=== PATIENT | female | born 1950 | race Caucasian/White ===

== ENCOUNTER 2017-04-07 06:36 | Emergency (ER) | payer OTHER ==
[~2017-04-07] VITALS: Ht 165.1 cm; Wt 72.7 kg
[2017-04-07] MEDS ORDERED: ONDANSETRON 4 MG INJ IV STA (06:37)
[2017-04-07] MEDS ORDERED: SOD CHLORIDE 0.9% 1,000 ML IV STA (06:37)
[2017-04-07] MEDS ORDERED: PANTOPRAZOLE 40 MG INJ IV STA (06:37)
[2017-04-07 06:45] VITALS: Ht 165.1 cm; Wt 72.7 kg
[2017-04-07] MEDS ORDERED: morphine 4 MG/ML VIAL IV STA (07:20)
[2017-04-07 07:30] LABS: ADD SCAN DIFF NO
[2017-04-07 07:31] LABS: BASOPHIL # 0.1 10^3/ul (0.0-0.1); BASOPHILS % 0.4 % (0.0-2.0); EOSINOPHILS # 0.1 10^3/ul (0.0-0.5); EOSINOPHILS % 0.7 % (0.0-7.0); HEMATOCRIT 36.5 % (37.0-47.0); HEMOGLOBIN 12.3 g/dl (12.0-16.0); LYMPHOCYTES # 2.6 10^3/ul (0.8-2.9); LYMPHOCYTES % 19.3 % (15.0-51.0); MEAN CORPUSCULAR HEMOGLOBIN 31.5 pg (29.0-33.0); MEAN CORPUSCULAR HGB CONC 33.7 g/dl (32.0-37.0); MEAN CORPUSCULAR VOLUME 93.4 fl (82.0-101.0); MEAN PLATELET VOLUME 10.8 fl (7.4-10.4); MONOCYTE # 0.8 10^3/ul (0.3-0.9); MONOCYTES % 6.2 % (0.0-11.0); NEUTROPHIL # 9.7 10^3/ul (1.6-7.5); NEUTROPHILS % 72.9 % (39.0-77.0); PLATELET COUNT 242 10^3/UL (140-415); RED BLOOD COUNT 3.91 10^6/ul (4.20-5.40); RED CELL DISTRIBUTION WIDTH 13.2 % (11.5-14.5); WHITE BLOOD COUNT 13.3 10^3/ul (4.8-10.8)
[2017-04-07 07:54] LABS: INR 0.93; PROTIME 12.5 Sec (12.2-14.2)
[2017-04-07 07:55] LABS: PARTIAL THROMBOPLASTIN TIME 28.5 Sec (25.0-35.0)
[2017-04-07 07:56] LABS: ALANINE AMINOTRANSFERASE 28 IU/L (13-69); ALBUMIN/GLOBULIN RATIO 1.28; ALKALINE PHOSPHATASE 109 IU/L (42-121); ANION GAP 11 (8-16); ASPARTATE AMINO TRANSFERASE 21 IU/L (15-46); BILIRUBIN,INDIRECT 0.4 mg/dl (0-1.1); BILIRUBIN,TOTAL 0.4 mg/dl (0.2-1.3); BLOOD UREA NITROGEN 15 mg/dl (7-20); CALCIUM 10.2 mg/dl (8.4-10.2); CARBON DIOXIDE 31 mmol/L (21-31); CHLORIDE 99 mmol/L (97-110); GLUCOSE 89 mg/dl (70-220); POTASSIUM 3.5 mmol/L (3.5-5.1); SODIUM 137 mmol/L (135-144); TOTAL PROTEIN 8.9 g/dl (6.1-8.1)
[2017-04-07 08:13] LABS: TROPONIN-I < 0.012 ng/ml (0.00-0.12)
--- NOTE | 2017-04-07 08:19 | RADRPT ---
PROCEDURE: Abdominal Ultrasound (right upper quadrant). CLINICAL INDICATION: Abdominal pain TECHNIQUE: Multiple real-time longitudinal and transverse images of the right upper quadrant of th e abdomen were acquired utilizing a curved array transducer. Images were reviewed on a high-resoluti on PACS workstation. COMPARISON: None FINDINGS: The liver is normal in size and echogenicity. No focal masses are identified. There is no evidenc e of intra or extrahepatic ductal dilatation. The common bile duct measures 5.9 mm in diameter. No gallstones or gallbladder wall thickening is seen. The visualized portions of the pancreas are unremarkable with obscuration of the tail of the pancrea s. No free fluid is identified. There is no evidence of right hydronephrosis or renal calcification. The right kidney measures 11.9 cm in length. The visualized portions of the aorta and inferior vena cava are within normal limits. IMPRESSION: 1. Unremarkable right upper quadrant ultrasound. RPTAT: [facility] .Isaiah Waller MD, MD Date Time Electronically viewed and signed by .Isaiah Waller MD, on 04/07/2017 08:19 .B/
[2017-04-07] MEDS ORDERED: ONDA4TAB14 PO (09:19)
[2017-04-07] MEDS ORDERED: HYDR-902 PO (09:19)
--- NOTE | 2017-04-07 09:20 | ERD ---
ER Documentation Chief Complaint Date/Time DATE: 04/07/17 TIME: 09:19 Chief Complaint ap x3 days, ongoing issue x1yr. HPI Patient is a 66-year-old female with hypertension and diabetes who presents with abdominal pain. She was brought in by ambulance. She has had midepigastric abdominal pain which radiates to her back. The pain started last night. She has no fevers. She has had no treatment as of yet. She had one episode of vomiting blood after a number of episodes of vomiting just food. Upon review of old medical records this is the patient's first visit to the emergency department. The patient's primary doctor is Dr. Sr. ROS All systems reviewed and are negative except as per history of present illness. Medications Home Meds Active Scripts Ondansetron (Ondansetron Odt) 4 Mg Tab.rapdis, 4 MG PO Q6H Y for NAUSEA AND/OR VOMITING, #30 TAB Prov:DEE PAVON MD 04/07/17 Hydrocodone/Acetaminophen (Kendrick 10-325 Tablet) 1 Each Tablet, 1 TAB PO Q6H Y for PAIN, #7 TAB Prov:DEE PAVON MD 04/07/17 Allergies Allergies: Coded Allergies: No Known Allergy (Unverified , 04/07/17) PMhx/Soc Medical and Surgical Hx: pt denies Surgical Hx Hx Cardiac Disorders: Yes (htn) Hx Miscellaneous Medical Probl: Yes (dm) Hx Alcohol Use: No Hx Substance Use: No Hx Tobacco Use: No Smoking Status: Never smoker FmHx Family History: diabetes Physical Exam Vitals Vital Signs Date Time Temp Pulse Resp B/P Pulse Ox O2 Delivery O2 Flow Rate FiO2 04/07/17 09:57 97.9 78 16 138/82 100 Room Air 04/07/17 08:50 78 16 119/58 97 Nasal Cannula 2.0 04/07/17 07:37 Nasal Cannula 2 04/07/17 06:45 98.3 84 18 158/70 97 Physical Exam Const: Moderate distress secondary to pain Head: Atraumatic Eyes: Normal Conjunctiva ENT: Normal External Ears, Nose and Mouth. Neck: Full range of motion..~ No meningismus. Resp: Clear to auscultation bilaterally Cardio: Regular rate and rhythm, no murmurs Abd: Epigastric tenderness to palpation without rebound or guarding Skin: No petechiae or rashes Back: No midline or flank tenderness Ext: No cyanosis, or edema Neur: Awake and alert Psych: Normal Mood and Affect Result Diagram: 04/07/1771904/07/1720 Results 24 hrs Laboratory Tests Test 04/07/17 07:20 White Blood Count 13.310^3/ul Red Blood Count 3.9110^6/ul Hemoglobin 12.3g/dl Hematocrit 36.5% Mean Corpuscular Volume 93.4fl Mean Corpuscular Hemoglobin 31.5pg Mean Corpuscular Hemoglobin Concent 33.7g/dl Red Cell Distribution Width 13.2% Platelet Count 09960^3/UL Mean Platelet Volume 10.8fl Neutrophils % 72.9% Lymphocytes % 19.3% Monocytes % 6.2% Eosinophils % 0.7% Basophils % 0.4% Nucleated Red Blood Cells % 0.0/100WBC Neutrophils # 9.710^3/ul Lymphocytes # 2.610^3/ul Monocytes # 0.810^3/ul Eosinophils # 0.110^3/ul Basophils # 0.110^3/ul Nucleated Red Blood Cells # 0.010^3/ul Prothrombin Time 12.5Sec Prothrombin Time Ratio 1.0 INR International Normalized Ratio 0.93 Activated Partial Thromboplast Time 28.5Sec Sodium Level 137mmol/L Potassium Level 3.5mmol/L Chloride Level 99mmol/L Carbon Dioxide Level 31mmol/L Anion Gap 11 Blood Urea Nitrogen 15mg/dl Creatinine 0.70mg/dl Glucose Level 89mg/dl Calcium Level 10.2mg/dl Total Bilirubin 0.4mg/dl Direct Bilirubin 0.00mg/dl Indirect Bilirubin 0.4mg/dl Aspartate Amino Transf (AST/SGOT) 21IU/L Alanine Aminotransferase (ALT/SGPT) 28IU/L Alkaline Phosphatase 109IU/L Troponin I < 0.012ng/ml Total Protein 8.9g/dl Albumin 5.0g/dl Globulin 3.90g/dl Albumin/Globulin Ratio 1.28 Lipase 83U/L Current Medications Medications (Trade) Dose Ordered Sig/Thanh Route PRN Reason Start Time Stop Time Status Last Admin Dose Admin Sodium Chloride (NS) 1,000 ml @ 1,000 mls/hr Q1H STAT IV 04/07/17 06:37 04/07/17 07:36 DC 04/07/17 07:28 Pantoprazole (Protonix Iv) 40 mg ONCE STAT IV 04/07/17 06:37 04/07/17 06:39 DC 04/07/17 07:28 Ondansetron HCl (Zofran Inj) 4 mg ONCE STAT IV 04/07/17 06:37 04/07/17 06:39 DC 04/07/17 07:28 Morphine Sulfate (morphine) 4 mg ONCE STAT IV 04/07/17 07:20 04/07/17 07:21 DC 04/07/17 07:28 Procedures/MDM EKG read by me: Rate/Rhythm: Regular rate and rhythm at a rate of 89 Intervals: Normal Impression: No evidence of ischemia or arrhythmia Ultrasound negative per radiology. Patient is a 66-year-old female who presents with abdominal pain and hematemesis. The patient has no vomiting of blood here in the emergency department and is otherwise well-appearing. Patient has a normal EKG and normal ultrasound. Laboratory studies show a mild leukocytosis but no signs of anemia or electrolyte abnormality. LFTs and lipase were normal. At this point I doubt appendicitis, cholecystitis, pancreatitis, or bowel obstruction. I doubt acute coronary syndrome. The patient will be discharged home and can follow-up with her doctor within 24 hours for reevaluation. She can return sooner for any worsening symptoms. She will be given a prescription for Kendrick and Zofran. She was given copies of her laboratory studies and ultrasound report prior to discharge. Departure Diagnosis: Primary Impression: Abdominal pain Abdominal location: epigastric Qualified Code: R10.13 - Epigastric pain Condition: Fair Patient Instructions: Abdominal Pain Additional Instructions: FOLLOW UP WITH YOUR PRIMARY CARE PHYSICIAN TOMORROW.Return to this facility if you are not improving as expected. DEE PAVON MD Apr 07, 2017 09:19
[2017-04-07 09:57] VITALS: BP 138/82; PULSE 78; RESP 16; TEMP 97.9
== END 2017-04-07 09:59 | disposition home or self-care (01) ==
LOC: E/R 06:36
DX: R10.13 Epigastric pain (principal); I10 Essential (primary) hypertension; E11.9 Type 2 diabetes mellitus without complications
CPT/HCPCS: 36415; 76705; 80053; 83690; 84484; 85025; 85610; 85730; 86850; 86900; 86901; 93005; 96374; 96375; C9113; J2270; J2405; J7030; Z7502

== ENCOUNTER 2019-02-17 10:34 | Inpatient (IN) | payer OTHER ==
[~2019-02-17] VITALS: Ht 157.5 cm; Wt 80.0 kg
[~2019-02-17 10:34] MED LIST: HYDR-3980 PO; ONDA4TAB14 PO
[2019-02-17] MEDS ORDERED: IPRATROPIUM (NEB) 0.5 MG/2.5 ML AMP INH STA (10:47)
[2019-02-17] MEDS ORDERED: METHYLPREDNISOLONE 125 MG INJ IV STA (10:47)
[2019-02-17] MEDS ORDERED: SOD CHLORIDE 0.9% 500 ML IV STA (10:47)
[2019-02-17] MEDS ORDERED: ALBUTEROL 0.5% (NEB) 2.5 MG/0.5 ML AMP INH STA (10:47)
[2019-02-17] MEDS ORDERED: morphine 2 MG INJ IV STA (11:41)
[2019-02-17] MEDS ORDERED: ONDANSETRON 4 MG INJ IV STA (11:41)
[2019-02-17] MEDS ORDERED: METF850T13 PO (11:43)
[2019-02-17] MEDS ORDERED: ASPI81TA52 PO (11:44)
[2019-02-17] MEDS ORDERED: AMLO5TAB4 PO (11:44)
[2019-02-17] MEDS ORDERED: LOSA100T15 PO (11:45)
[2019-02-17] MEDS ORDERED: LANT3I SC (11:46)
[2019-02-17] MEDS ORDERED: MELO7.5T38 PO (11:46)
[2019-02-17] MEDS ORDERED: INSU100I12 SQ (11:46)
[2019-02-17] MEDS ORDERED: MONT10TA24 PO (11:47)
[2019-02-17] MEDS ORDERED: ESCI10TA PO (11:47)
[2019-02-17] MEDS ORDERED: OMEP40CA6 PO (11:47)
[2019-02-17] MEDS ORDERED: ATOR20TA38 PO (11:47)
[2019-02-17] MEDS ORDERED: ONDANSETRON 4 MG INJ ONE (11:49)
[2019-02-17] MEDS ORDERED: morphine 4 MG/ML VIAL ONE (11:49)
--- NOTE | 2019-02-17 11:49 | ERD ---
ER Documentation Chief Complaint Chief Complaint BIB [facility] FOR EVAL OF SOB. 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 The patient indicates that for the past 48 hours she has been having severe difficulty breathing. She also complains of pain on her right chest wall. Her dyspnea has significantly worsened. She denies any swelling of her lower extremities. She is utilize her albuterol inhaler at home with no improvement of her symptoms. She is never required intubation in the past She has not been admitted to the hospital in the past for an asthma exacerbation. She had no fevers or shaking or chills. She also states that she is having a productive cough with whitish sputum. She denies any chest pain or pressure. ROS All systems reviewed and are negative except as per history of present illness. Medications Home Meds Reported Medications Escitalopram Oxalate* (Lexapro*) 10 Mg Tablet, 10 MG PO DAILY, #30 TAB 02/17/19 Omeprazole* (Omeprazole*) 40 Mg Capsule.dr, 40 MG PO DAILY, #30 CAP 02/17/19 Montelukast Sodium* (Montelukast Sodium*) 10 Mg Tablet, 10 MG PO QHS, #30 TAB 02/17/19 Atorvastatin Calcium* (Atorvastatin Calcium*) 20 Mg Tablet, 20 MG PO QHS, #30 TAB 02/17/19 Meloxicam* (Meloxicam*) 7.5 Mg Tablet, 7.5 MG PO DAILY, #30 TAB 02/17/19 Insulin Lispro (Humalog Kwikpen U-100) 100 Unit/1 Ml Insuln.pen, 12 UNIT SQ AC A, EA 02/17/19 Insulin Glargine* (Lantus*) 100 Unit/Ml Soln, 50 UNIT SC QHS, #1 VIAL 02/17/19 Losartan Potassium* (Losartan Potassium*) 100 Mg Tablet, 100 MG PO DAILY, TAB 02/17/19 Aspirin (Low Dose Aspirin) 81 Mg Tablet.dr, 81 MG PO DAILY, #30 TAB 02/17/19 Metformin Hcl* (Metformin Hcl*) 850 Mg Tablet, 850 MG PO WITH BREAKFAST DINNE, #60 TAB 02/17/19 Discontinued Reported Medications Amlodipine Besylate* (Norvasc*) 5 Mg Tablet, 5 MG PO DAILY, TAB 02/17/19 Discontinued Scripts Ondansetron (Ondansetron Odt) 4 Mg Tab.rapdis, 4 MG PO Q6H PRN for NAUSEA AND/OR VOMITING, #30 TAB Prov:DEE PAVON MD 04/07/17 Hydrocodone/Acetaminophen ([place] 10-325 Tablet) 1 Each Tablet, 1 TAB PO Q6H PRN for PAIN, #7 TAB Prov:DEE PAVON MD 04/07/17 Allergies Allergies: Coded Allergies: No Known Allergy (Unverified , 02/17/19) PMhx/Soc Hx Respiratory Disorders: Yes Hx Cardiac Disorders: Yes (htn) Hx Miscellaneous Medical Probl: Yes (dm) Hx Alcohol Use: No Hx Substance Use: No Hx Tobacco Use: No Smoking Status: Never smoker Physical Exam Vitals Vital Signs Date Temp Pulse Resp B/P (MAP) Pulse Ox O2 O2 Flow FiO2 Time Delivery Rate 02/17/19 98 98 30 12:58 02/17/19 120 98 30 11:59 02/17/19 136 22 87/43 (58) 11:51 02/17/19 120 26 100 21 11:05 02/17/19 Nasal 2 11:03 Cannula 02/17/19 99.6 112 20 112/52 99 10:42 (72) Physical Exam Constitutional:Well-developed. Well-nourished. Patient in severe respiratory distress HEENT:Normocephalic. Atraumatic.Pupils were equal round reactive to light. Moist mucous membranes.No tonsillar exudates. Neck: No nuchal rigidity. No lymphadenopathy. No posterior cervical spine tenderness or step-offs. Respiratory: Patient using accessory muscles of respiration. Bilateral rhonchi. Unable to speak more than 2 words at a time before becoming short of breath Cardiovascular: Tachycardic with regular rhythm.No murmurs. No rubs were appreciated.S1, S2 normal. Distal pulses are palpable 2+ bilaterally. GI: Abdomen was soft. Nontender. Non Distended. No pulsatile abdominal masses or bruits. No rebound. No guarding. Bowel sounds were present and normal. Muscle skeletal: Full range of motion of both the upper and lower extremities bilaterally.Normal muscle tone.No assymetrical calf tenderness or swelling. Skin: No petechia, no purpura. No lesions on the palms or the soles of the feet. No maculopapular rash. NEURO: Patient was alert, awake, orientated x3.No facial droop. Gait observed and normal with no ataxia.Speech had regular rate and rhythm. No focal neurological deficits. Result Diagram: 02/17/19 1059 02/17/19 1059 Results 24 hrs Laboratory Tests Test 02/17/19 10:59 White Blood Count 18.0 10^3/ul Red Blood Count 3.70 10^6/ul Hemoglobin 11.3 g/dl Hematocrit 35.5 % Mean Corpuscular Volume 95.9 fl Mean Corpuscular Hemoglobin 30.5 pg Mean Corpuscular Hemoglobin Concent 31.8 g/dl Red Cell Distribution Width 13.0 % Platelet Count 205 10^3/UL Mean Platelet Volume 11.6 fl Immature Granulocytes % 0.400 % Neutrophils % 71.4 % Lymphocytes % 21.9 % Monocytes % 5.8 % Eosinophils % 0.2 % Basophils % 0.3 % Nucleated Red Blood Cells % 0.0 /100WBC Immature Granulocytes # 0.080 10^3/ul Neutrophils # 12.8 10^3/ul Lymphocytes # 3.9 10^3/ul Monocytes # 1.0 10^3/ul Eosinophils # 0.0 10^3/ul Basophils # 0.1 10^3/ul Nucleated Red Blood Cells # 0.0 10^3/ul Prothrombin Time 13.7 Sec Prothrombin Time Ratio 1.1 INR International Normalized Ratio 1.04 Activated Partial Thromboplast Time 28.0 Sec Sodium Level 139 mmol/L Potassium Level 4.0 mmol/L Chloride Level 103 mmol/L Carbon Dioxide Level 25 mmol/L Anion Gap 11 Blood Urea Nitrogen 20 mg/dl Creatinine 0.94 mg/dl Est Glomerular Filtrat Rate mL/min 59 mL/min Glucose Level 236 mg/dl Calcium Level 8.4 mg/dl Total Bilirubin 0.9 mg/dl Direct Bilirubin 0.00 mg/dl Indirect Bilirubin 0.9 mg/dl Aspartate Amino Transf (AST/SGOT) 147 IU/L Alanine Aminotransferase (ALT/SGPT) 32 IU/L Alkaline Phosphatase 133 IU/L Creatine Kinase 1008 IU/L Creatine Kinase Index 6.5 Creatinine Kinase MB (Mass) 65.60 ng/ml Troponin I 15.900 ng/ml B-Type Natriuretic Peptide 7380 PG/ML Total Protein 7.3 g/dl Albumin 3.8 g/dl Globulin 3.50 g/dl Albumin/Globulin Ratio 1.08 Current Medications Medications Dose Sig/Thanh Start Time Status Last (Trade) Ordered Route PRN Stop Time Admin Dose Reason Admin Sodium 500 ml @ Q1H STAT 02/17/19 DC 02/17/19 Chloride 500 mls/hr IV 10:47 11:02 02/17/19 11:46 Albuterol 10 mg ONCE STAT 02/17/19 DC 02/17/19 (Proventil INH 10:47 11:00 0.5% (Neb)) 02/17/19 10:51 Ipratropium 1 mg ONCE STAT 02/17/19 DC 02/17/19 [place] INH 10:47 11:00 (Atrovent 02/17/19 10:51 0.02% (Neb)) 125 mg ONCE STAT 02/17/19 DC 02/17/19 Methylprednis IV 10:47 11:02 olone Sodium 02/17/19 10:51 Succinate (Solu-Medrol) Lorazepam 1 mg ONCE ONCE 02/17/19 Cancel (Ativan) IV 12:00 02/17/19 12:01 Morphine 2 mg ONCE STAT 02/17/19 UNV Sulfate IV 11:41 (morphine) 02/17/19 11:42 Ondansetron 4 mg ONCE STAT 02/17/19 DC HCl (Zofran IV 11:41 Inj) 02/17/19 12:03 Ondansetron 4 mg STK-MED 02/17/19 DC HCl (Zofran ONCE .ROUTE 11:49 Inj) 02/17/19 11:50 Morphine 4 mg STK-MED 02/17/19 DC Sulfate ONCE .ROUTE 11:49 (morphine) 02/17/19 11:50 Aspirin 325 mg ONCE ONCE 02/17/19 DC 02/17/19 (Aspirin) PO 12:00 12:18 02/17/19 12:03 Fentanyl 50 mcg ONCE ONCE 02/17/19 DC 02/17/19 (Sublimaze) IV 12:00 12:17 02/17/19 12:03 Enoxaparin 80 mg ONCE ONCE 02/17/19 DC 02/17/19 Sodium SC 12:00 12:46 (Lovenox) 02/17/19 12:19 20 mg QHS PO 02/17/19 Atorvastatin 21:00 Calcium (Lipitor) 10 mg DAILY PO 02/17/19 Escitalopram 13:00 Oxalate (Lexapro) Montelukast 10 mg QHS PO 02/17/19 Sodium 21:00 (Singulair) 1,000 mg Q4 PRN PO 02/17/19 Acetaminophen pain 13:00 (Tylenol Tab) Ondansetron 4 mg Q4 PRN IV 02/17/19 HCl (Zofran nausea 13:00 Inj) Zolpidem 5 mg HS MAY 02/17/19 Tartrate REPEAT X 1 13:00 (Ambien) PRN PO INSOMNIA Ondansetron 4 mg ER BRIDGE 02/17/19 HCl (Zofran PRN IV 13:30 Inj) NAUSEA/VOMITI 02/18/19 13:29 NG 650 mg ER BRIDGE 02/17/19 Acetaminophen PRN PO 13:30 (Tylenol .MILD PAIN 02/18/19 13:29 Tab) 1-3 OR TEMP Procedures/MDM The patient presented to the emergency department with shortness of breath. My differential diagnosis included but was not limited to upper airway obstruction, CHF, pulmonary embolism, cardiac ischemia, pneumonia, pneumothorax, anemia, drug overdose, pulmonary edema, COPD or asthma. 12 Lead EKG tracing ordered and reviewed by myself showed: Sinus tachycardia 122 bpm and no arrhythmia. NV interval normal. QRS duration normal. No ST segment elevation ST segment depression isolated to lead to and lateral lead V4. The patient had a chest radiograph that showed no pneumonia. However the patient did have pulmonary vascular congestion and cardiomegaly. The patient was immediately started on continuous nebulizer treatments of albuterol and Atrovent. However this did not improve her symptoms. The patient was still having severe difficulty breathing was placed on noninvasive mechanical ventilation. The patient's BNP was elevated at 7380. The patient was hyperglycemic without ketosis. The patient's troponin was elevated at 15.90. CK-MB was 65.90. The patient again did not complain of any chest pain or pressure. However this time I did call the fork lift technician Dr. Gagnon. After Dr. Gagnon kindly stated she would be consulted she did suggest administering 1 mg/kg of Lovenox to the patient. Therefore the patient was given 80 mg of Lovenox that she weighs 80 kg. A stat echocardiogram is being performed at bedside at 1:28 PM. She will be admitted to Dr. Edwards who also came to the bedside to evaluate the patient. The patient had significant improvement of her respiratory distress after being placed on noninvasive mechanical ventilation. Critical Care: Time: 90 minutes Treatments/Evaluations: Close monitoring and treatment of unstable vital signs, cardiorespiratory, and neurologic status, while maintaining tight balance of fluid, respiratory, and cardiac interventions. Time does not include performing any of the above billable procedures. Departure Diagnosis: Primary Impression: Congestive heart failure Heart failure type: unspecified Heart failure chronicity: acute Qualified Codes: I50.9 - Heart failure, unspecified Additional Impressions: Non-STEMI (non-ST elevated myocardial infarction) Hyperglycemia without ketosis Condition: Serious KAMRAN CARNES MD February 17, 2019 11:49
[2019-02-17] MEDS ORDERED: LORAZEPAM 2 MG INJ IV ONE (12:00)
[2019-02-17] MEDS ORDERED: FENTAnyl 50 MCG/ML VIAL IV ONE (12:00)
[2019-02-17] MEDS ORDERED: ENOXAPARIN 80 MG/0.8 ML SYG SC ONE (12:00)
[2019-02-17] MEDS ORDERED: ASPIRIN 325 MG TAB PO ONE (12:00)
[2019-02-17] MEDS ORDERED: ONDANSETRON 4 MG INJ IV PRN ×2 (13:00→13:30)
[2019-02-17] MEDS ORDERED: ACETAMINOPHEN 325 MG TAB PO PRN (13:30)
[2019-02-17] MEDS: ESCITALOPRAM 10 MG TAB PO SCH (14:40)
--- NOTE | 2019-02-17 14:47 | HP ---
DATE OF ADMISSION: 02/17/2019 CHIEF COMPLAINT: Shortness of breath. HISTORY OF PRESENT ILLNESS: A 68-year-old obese female with a history of hypertension, type 2 diabet es mellitus, and chronic asthma, presented to emergency room with complaint of shortness of breath an d dyspnea on exertion for the last 2 days prior to admission. The patient denies any chest pain. She reports bilateral upper back pain. No nausea, vomiting, or diaphoresis. No previous cardiac histor y. Initially, patient was noted to be quite hypoxic and wheezing. She received inhaler therapy and the wheezing was resolved. WBC was elevated to 18,000. BNP was elevated to 7380 with an initial troponi n of 15.9. A 12-lead EKG showed ST segment depression which were only noted in lead 4. There was no ST elevation. The patient was placed on BiPAP. A chest x-ray showed pulmonary vascular congestion and borderline cardiomegaly. The patient was hypotensive with a blood pressure of 87/53 and heart ra te of 130. PAST MEDICAL HISTORY: 1. Hypertension. 2. Type 2 diabetes mellitus. 3. Chronic asthma. 4. Chronic depression. 5. Obesity. MEDICATIONS PRIOR TO ADMISSION: 1. Amlodipine 5 mg daily. 2. Lipitor 20 mg at night. 3. Losartan 100 mg daily. 4. Aspirin 81 mg daily. 5. Lexapro 10 mg daily. 6. Meloxicam 7.5 mg daily. 7. Singulair 10 mg at bedtime. 8. Omeprazole 40 mg daily. 9. Lantus insulin 50 units at bedtime. 10. Humalog insulin 12 units before each meal. 11. Metformin 850 mg b.i.d. SOCIAL HISTORY: The patient lives at home. Her daughter was at the bedside and acted as a translato r. The patient is Ukrainian speaking. She denies tobacco, alcohol use. PHYSICAL EXAMINATION: GENERAL: Well-developed, well-nourished, obese female who is in no apparent distress. She appears a nxious. VITAL SIGNS: Blood pressure 87/53, pulse 130, respiration 22, she was on BiPAP. NECK: Supple. Mild JVD. LUNGS: Clear to auscultation bilaterally. CARDIAC: Rapid rate. No murmurs or gallops. ABDOMEN: Soft, obese, nontender, nondistended, normoactive bowel sounds. EXTREMITIES: No clubbing, cyanosis, or edema. NEUROLOGICAL: Grossly nonfocal. LABORATORY DATA: Basic metabolic panel within normal limits. Liver function tests are also normal. Troponin 15.9. BNP 7380, albumin 3.8. WBC 18,000, hemoglobin 11.3, platelet count 205,000. ASSESSMENT: 1. A 68-year-old female presenting with acute non-ST elevation myocardial infarction. 2. Acute respiratory failure. 3. Congestive heart failure exacerbation. 4. Hypotension. 5. Sinus tachycardia. 6. Type 2 diabetes mellitus. 7. History of asthma, compensated. 8. Leukocytosis with no clinical evidence of infection. PLAN: 1. Admit to telemetry. 2. The patient may need to be upgraded to ICU if she remains hypotensive. 3. Stat 2D echo. 4. Full dose Lovenox. 5. Resume selective home medications. 6. Cardiology consultation was requested and case was discussed with Dr. Gagnon. Dictated By: NILAY PEDROZA/BRENNA Conf#: [id number] DID#: [id number]
[2019-02-17 17:17] VITALS: PULSE 114
[2019-02-17 17:37] VITALS: BP 97/54; PULSE 118; RESP 20; Ht 157.5 cm; Wt 80.0 kg
[2019-02-17] MEDS ORDERED: INSULIN GLARGINE [LANTus] (100 UNITS/ML) SYG SC STA (18:31)
[2019-02-17] MEDS ORDERED: GLUCOSE GEL 15 GRAM TUBE BUCCAL PRN (19:00)
[2019-02-17] MEDS ORDERED: GLUCOSE GEL 15 GRAM TUBE PO PRN ×2 (19:00)
[2019-02-17] MEDS ORDERED: DEXTROSE 50% 50 ML SYRINGE IV PRN ×2 (19:00)
[2019-02-17] MEDS ORDERED: GLUCAGON 1 MG INJ IM PRN (19:00)
[2019-02-17 19:30] VITALS: BP 104/60; PULSE 104; RESP 18
[2019-02-17] MEDS: INSULIN ASPART [NOVOLOG] 3 ML PEN SC SCH ×2 (19:40→21:35)
[2019-02-17 20:18] VITALS: BP 98/55
[2019-02-17 20:34] VITALS: PULSE 114
[2019-02-17] MEDS ORDERED: ATORVASTATIN 20 MG TAB PO SCH (21:00)
[2019-02-17] MEDS ORDERED: INSULIN ASPART [NOVOLOG] 3 ML PEN SC SCH (21:00)
[2019-02-17] MEDS ORDERED: INSULIN ASPART [NOVOLOG] 3 ML PEN SC ONE (21:00)
[2019-02-17] MEDS: MONTELUKAST 10 MG TAB PO SCH (21:09)
--- NOTE | 2019-02-17 22:21 | RADRPT ---
Echocardiogram Report Patient Name: CLIFTON ÁLVAREZPatient ID: [id number] : [id number] ([id number])Study Date: 02/17/2019 1:29:04 PM Gender: FAccession #: [id number] Tech: [facility] Location: [facility] Ref.Physician: KAMRAN CARNES Height(Cm): 170 BSA: 1.94Weight(Kg): 79.8 Quality: Technically Difficult StudyOrder Physician: KAMRAN CARNES Account #: Procedures: Echocardiographic Report: Transthoracic echocardiogram with 2D, M-Mode, and Doppler examination. Indications: Congestive Heart Failure, and STEMI. Measurements: 2D/M Mode Doppler Measurement Value Normal Range Measurement Value Normal Range LA Volume 54.5 [ 22.0 - 52.0 ] ml AV Peak [place] 1.4 [ 100.0 - 170.0 ] c m/sec LA Volume Index 28 [ 16 - 34 ] ml/m2 AV Peak PG 8.0 [ 2.0 - 9.0 ] mmHg LVIDd 2D 5.5 [ 3.8 - 5.2 ] cm LVOT Peak [place] 0.8 [ 70.0 - 110.0 ] cm /sec LVIDs 2D 4.0 [ 2.2 - 3.5 ] cm LVOT Peak PG 3.0 [ 2.0 - 6.0 ] mmHg LVPWd 2D 1.0 [ 0.6 - 0.9 ] cm MV E Peak [place] 1.2 [ 60.0 - 130.0 ] cm /sec IVSd 2D 1.1 [ 0.6 - 0.9 ] cm MV A Peak [place] 1.3 [ 100.0 - 120.0 ] c m/sec AoR Diam 2D 2.7 [ 2.3 - 3.1 ] cm MV E/A 0.9 [ 0.8 - 1.5 ] ratio EDV 2D 145.0 [ 46.0 - 106.0 ] ml MV PHT 34.0 [ 20.0 - 100.0 ] ms ec ESV 2D 68.3 [ 14.0 - 42.0 ] ml MV Decel Time 116 [ 104 - 258 ] msec EF 2D 52.9 [ 54.0 - 74.0 ] percent MV Decel [place] 10 LA Dimen 2D 3.8 [ 2.7 - 3.8 ] cm Lat E` Magdal[place] 0.1 [ 10.0 - 15.0 ] cm/ sec Lateral E/E` 16.3 [ 1.0 - 2.0 ] ratio Med E` Magdal[place] 0.0 cm/sec MV E/A 0.9 [ 0.8 - 1.5 ] ratio MVA PHT 6.5 [ 2.0 - 4.0 ] cm2 TR Peak [place] 3.0 [ 100.0 - 280.0 ] c m/sec TR Peak PG 35.0 mmHg PV Peak Magdal[place] 0.8 [ 40.0 - 80.0 ] cm/ sec PV Peak PG 2.0 mmHg RVSP 45.0 [ 10.0 - 36.0 ] mmH g RA Pressure 10.0 mmHg Findings: Left Ventricle: Mild concentric left ventricular hypertrophy. Mild enlargement of left ventricle cavity. Unable to estimate left ventricular function secondary to poor acoustic windows, however, globally the LV function appears to be decreased possibly moderately to severely. Abnormal Diastolic Function. E/E'= 27. Right Ventricle: Normal right ventricular size. Left Atrium: Upper limit of normal left atrial size. Right Atrium: The right atrium is normal in size. Atrial Septum: Not well visualized. Mitral Valve: Mild mitral annular calcification. Mild mitral valve regurgitation. Aortic Valve: No significant aortic stenosis or insufficiency. Aortic cusps appear mildly calcified. Tricuspid Valve: Normal appearance of the tricuspid valve. The estimated Peak RVSP is 45 mmHg. There is mild tricuspid regurgitation. Pulmonic Valve: Pulmonic valve not well visualized. Pericardium: Normal pericardium with no significant pericardial effusion. Aorta: Normal aortic root. IVC: Normal size and no respiratory collapse however patient too SOB to attempt sniff. Pulmonary Artery: Normal pulmonary artery size. Conclusions: Technically difficult study. Moderate to severely reduced left ventricular systolic function, EF about 35%. Cannot adequately assess wall motion. Left atrial enlargement. Mild mitral regurgitation. Mild tricuspid regurgitation and moderate pulmonary hypertension. Electronically Signed By: Margie Gagnon 2019-02-17 22:21:07 PDT
[2019-02-17 22:25] VITALS: PULSE 102
[2019-02-17] MEDS ORDERED: ALBUTEROL/IPRATROPIUM (NEB) 3 ML AMP HHN PRN (22:30)
[2019-02-18] VITALS (32 sets, daily range): BP systolic 76–128; BP diastolic 50–83; PULSE 88–117; RESP 17–31
[2019-02-18] MEDS: ALBUTEROL/IPRATROPIUM (NEB) 3 ML AMP HHN SCH ×4 (01:56→20:11)
[2019-02-18] MEDS: ACCU-CHEK XX SCH (02:00)
[2019-02-18] MEDS: METOPROLOL (XL) 25 MG TAB PO SCH (08:25)
[2019-02-18] MEDS: ESCITALOPRAM 10 MG TAB PO SCH (09:00)
--- NOTE | 2019-02-18 09:17 | PN ---
Date/Time of Note Date/Time of Note DATE: 02/18/19 TIME: 09:13 Subjective Doing well. Remains on BiPAP. No complaints of chest pain or shortness of breath. Objective Vitals Vital Signs Date Temp Pulse Resp B/P (MAP) Pulse Ox O2 O2 Flow FiO2 Time Delivery Rate 02/18/19 92 18 106/65 99 BIPAP 09:00 (79) 02/18/19 30 09:00 02/18/19 97.5 07:54 02/17/19 5.0 22:29 Intake and Output 02/17/19 02/17/19 02/18/19 1515:00 23:00 07:00 IntakeIntake Total 200 ml BalanceBalance 200 ml Neck supple Lungs with mild crackles at the bases Cardiac regular rate and rhythm Abdomen soft obese nontender nondistended normoactive bowel sounds Extremities no edema Nonfocal Results Result Diagram: 02/18/19 0529 02/18/19 0529 Medications Medications Current Medications Escitalopram Oxalate (Lexapro) 10 mg DAILY PO ; Start 02/17/19 at 13:00 Montelukast Sodium (Singulair) 10 mg QHS PO Last administered on 02/17/19at 21:09; Admin Dose 10 MG; Start 02/17/19 at 21:00 Acetaminophen (Tylenol Tab) 1,000 mg Q4 PRN PO pain; Start 02/17/19 at 13:00 Ondansetron HCl (Zofran Inj) 4 mg Q4 PRN IV nausea; Start 02/17/19 at 13:00 Zolpidem Tartrate (Ambien) 5 mg HS MAY REPEAT X 1 PRN PO INSOMNIA; Start 02/17/19 at 13:00 Insulin Glargine (Lantus) 50 units DAILY@2000 SC ; Start 02/18/19 at 20:00 Insulin Aspart (Novolog Insulin Pen) 12 unit WITH MEALS SC Last administered on 02/17/19at 19:40; Admin Dose 12 UNIT; Start 02/17/19 at 19:00 Diagnostic Test (Pha) (Accu-Chek) 1 ea 02 XX ; Start 02/18/19 at 02:00 Insulin Aspart (Novolog Insulin Pen) NOVOLOG *MODERATE* ALGORITHM WITH MEALS BEDTIME SC Last administered on 02/17/19at 21:35; Admin Dose 4 UNIT; Start 02/17/19 at 21:00 Miscellaneous Information 1 ea NOTE XX ; Start 02/17/19 at 19:00 Glucose (Glutose) 15 gm Q15M PRN PO DECREASED GLUCOSE; Start 02/17/19 at 19:00 Glucose (Glutose) 22.5 gm Q15M PRN PO DECREASED GLUCOSE; Start 02/17/19 at 19:00 Dextrose (D50w Syringe) 25 ml Q15M PRN IV DECREASED GLUCOSE; Start 02/17/19 at 19:00 Dextrose (D50w Syringe) 50 ml Q15M PRN IV DECREASED GLUCOSE; Start 02/17/19 at 19:00 Glucagon (Glucagen) 1 mg Q15M PRN IM DECREASED GLUCOSE; Start 02/17/19 at 19:00 Glucose (Glutose) 15 gm Q15M PRN BUCCAL DECREASED GLUCOSE; Start 02/17/19 at 19:00 Atorvastatin Calcium (Lipitor) 80 mg QHS PO ; Start 02/18/19 at 21:00 Aspirin (Aspirin) 81 mg DAILY PO ; Start 02/18/19 at 09:00 Metoprolol Succinate (Toprol Xl) 12.5 mg DAILY PO ; Start 02/18/19 at 09:00 Albuterol/ Ipratropium (Duoneb) 3 ml Q6H RESP THERAPY HHN Last administered on 02/18/19at 08:45; Admin Dose 3 ML; Start 02/18/19 at 02:00 Albuterol/ Ipratropium (Duoneb) 3 ml Q6H RESP THERAPY PRN HHN SHORTNESS OF BREATH; Start 02/17/19 at 22:30 VTE Prophylaxis Risk score (from Nsg)>0 risk: 3 SCD applied (from Nsg): Yes Lines/Catheters IV Catheter Type: Saline Lock Beltran in Place: No Assessment/Plan Assessment/Plan 68-year-old female with acute non-STEMI. Troponins have been rising Ischemic cardiomyopathy with EF of 35% Acute systolic congestive heart failure exacerbation Hypotension, improved Type 2 diabetes mellitus History of chronic asthma Continue ICU monitoring IV Lasix 20 mg x 1 Lisinopril 2.[address] Faria was notified of above NILAY NORTON MD February 18, 2019 09:17
[2019-02-18] MEDS: ASPIRIN 81 MG TAB PO SCH (09:26)
[2019-02-18] MEDS ORDERED: FUROSEMIDE 20 MG INJ IV ONE (09:30)
--- NOTE | 2019-02-18 09:38 | CONS ---
Assessment/Plan Cardiology NYHA: IV Heart Failure Type: Acute Heart Failure Type: Both Assessment/Plan Hospital Course (Demo Recall) 68 yo with NSTEMI and acute heart failure Impression: NSTEMI Acute diastolic and systolic heart failure Diabetes uncontrolled Recommendations: She needs diuresis and bipap for now Once adequately diuresed will plan on coronary angiography likely for Tuesday Lovenox 1 mg/kg sq q 12, asa, high intensity statin Beta chanelle with metoprolol succinate and will uptitrate as able, lisinopril Will add spironolactone when able Consultation Date/Type/Reason Admit Date/Time February 17, 2019 at 13:03 Date of Consultation: February 18, 2019 Type of Consult Cardiology Reason for Consultation ME Requesting Provider: NILAY NORTNO MD Date/Time of Note DATE: 02/18/19 TIME: 09:31 Hx of Present Illness 68 yo with uncontrolled diabetes presents with two days of dyspnea, months of productive cough, and weeks of lower extremity dyspnea. She has had no chest pain, though with deep breaths has some discomfort in the sides of her chest. No prior heart issues. Last saw pcp 1 month ago. Does some exercise at the [employer], is active normally in her daily living. This am, was transferred to ICU due to work of breathing and concern over rising troponin levels. Patient seen in her room with family present who interpreted. Constitutional: no complaints Eyes: no complaints ENT: congestion Respiratory: pain, shortness of breath Cardiovascular: no complaints Gastrointestinal: no complaints Genitourinary: no complaints Musculoskeletal: no complaints Skin: no complaints Neurologic: no complaints Endocrine: no complaints Lymphatic: no complaints Psychological: no complaints Immunologic: no complaints Past Medical History Home Meds Reported Medications Escitalopram Oxalate* (Lexapro*) 10 Mg Tablet, 10 MG PO DAILY, #30 TAB 02/17/19 Omeprazole* (Omeprazole*) 40 Mg Capsule.dr, 40 MG PO DAILY, #30 CAP 02/17/19 Montelukast Sodium* (Montelukast Sodium*) 10 Mg Tablet, 10 MG PO QHS, #30 TAB 02/17/19 Atorvastatin Calcium* (Atorvastatin Calcium*) 20 Mg Tablet, 20 MG PO QHS, #30 T AB 02/17/19 Meloxicam* (Meloxicam*) 7.5 Mg Tablet, 7.5 MG PO DAILY, #30 TAB 02/17/19 Insulin Lispro (Humalog Kwikpen U-100) 100 Unit/1 Ml Insuln.pen, 12 UNIT SQ AC A, EA 02/17/19 Insulin Glargine* (Lantus*) 100 Unit/Ml Soln, 50 UNIT SC QHS, #1 VIAL 02/17/19 Losartan Potassium* (Losartan Potassium*) 100 Mg Tablet, 100 MG PO DAILY, TAB 02/17/19 Aspirin (Low Dose Aspirin) 81 Mg Tablet.dr, 81 MG PO DAILY, #30 TAB 02/17/19 Metformin Hcl* (Metformin Hcl*) 850 Mg Tablet, 850 MG PO WITH BREAKFAST DINNE, #60 TAB 02/17/19 Discontinued Reported Medications Amlodipine Besylate* (Norvasc*) 5 Mg Tablet, 5 MG PO DAILY, TAB 02/17/19 Discontinued Scripts Ondansetron (Ondansetron Odt) 4 Mg Tab.rapdis, 4 MG PO Q6H PRN for NAUSEA AND/OR VOMITING, #30 TAB Prov:DEE PAVON MD 04/07/17 Hydrocodone/Acetaminophen ([place] 10-325 Tablet) 1 Each Tablet, 1 TAB PO Q6H PRN for PAIN, #7 TAB Prov:DEE PAVON MD 04/07/17 Medications Current Medications Escitalopram Oxalate (Lexapro) 10 mg DAILY PO ; Start 02/17/19 at 13:00 Montelukast Sodium (Singulair) 10 mg QHS PO Last administered on 02/17/19at 21:09; Admin Dose 10 MG; Start 02/17/19 at 21:00 Acetaminophen (Tylenol Tab) 1,000 mg Q4 PRN PO pain; Start 02/17/19 at 13:00 Ondansetron HCl (Zofran Inj) 4 mg Q4 PRN IV nausea; Start 02/17/19 at 13:00 Zolpidem Tartrate (Ambien) 5 mg HS MAY REPEAT X 1 PRN PO INSOMNIA; Start 01/25 02/11 at 13:00 Insulin Glargine (Lantus) 50 units DAILY@2000 SC ; Start 02/18/19 at 20:00 Insulin Aspart (Novolog Insulin Pen) 12 unit WITH MEALS SC Last administered on 02/17/19at 19:40; Admin Dose 12 UNIT; Start 02/17/19 at 19:00 Diagnostic Test (Pha) (Accu-Chek) 1 ea 02 XX ; Start 02/18/19 at 02:00 Insulin Aspart (Novolog Insulin Pen) NOVOLOG *MODERATE* ALGORITHM WITH MEALS BEDTIME SC Last administered on 02/17/19at 21:35; Admin Dose 4 UNIT; Start 02/17/19 at 21:00 Miscellaneous Information 1 ea NOTE XX ; Start 02/17/19 at 19:00 Glucose (Glutose) 15 gm Q15M PRN PO DECREASED GLUCOSE; Start 02/17/19 at 19:00 Glucose (Glutose) 22.5 gm Q15M PRN PO DECREASED GLUCOSE; Start 02/17/19 at 19:00 Dextrose (D50w Syringe) 25 ml Q15M PRN IV DECREASED GLUCOSE; Start 02/17/19 at 19:00 Dextrose (D50w Syringe) 50 ml Q15M PRN IV DECREASED GLUCOSE; Start 02/17/19 at 19:00 Glucagon (Glucagen) 1 mg Q15M PRN IM DECREASED GLUCOSE; Start 02/17/19 at 19:00 Glucose (Glutose) 15 gm Q15M PRN BUCCAL DECREASED GLUCOSE; Start 02/17/19 at 19:00 Atorvastatin Calcium (Lipitor) 80 mg QHS PO ; Start 02/18/19 at 21:00 Aspirin (Aspirin) 81 mg DAILY PO Last administered on 02/18/19at 09:26; Admin Dose 81 MG; Start 02/18/19 at 09:00 Metoprolol Succinate (Toprol Xl) 12.5 mg DAILY PO ; Start 02/18/19 at 09:00 Albuterol/ Ipratropium (Duoneb) 3 ml Q6H RESP THERAPY HHN Last administered on 02/18/19at 08:45; Admin Dose 3 ML; Start 02/18/19 at 02:00 Albuterol/ Ipratropium (Duoneb) 3 ml Q6H RESP THERAPY PRN HHN SHORTNESS OF BREATH; Start 02/17/19 at 22:30 Furosemide (Lasix) 20 mg ONCE ONCE IV Last administered on 02/18/19at 09:26; Admin Dose 20 MG; Start 02/18/19 at 09:30; Stop 02/18/19 at 09:31 Lisinopril (Zestril) 2.5 mg DAILY PO ; Start 5/26/19 at 09:30 Allergies: Coded Allergies: No Known Allergy (Unverified , 02/17/19) Past Surgical History Past Surgical Hx: no surgical history Family History Significant Family History: heart disease (brother had ME at 45) Social History Smoking Status: Never smoker Exam/Review of Systems Vital Signs Vitals Vital Signs Date Temp Pulse Resp B/P (MAP) Pulse Ox O2 O2 Flow FiO2 Time Delivery Rate 02/18/19 92 18 106/65 99 BIPAP 09:00 (79) 02/18/19 30 09:00 02/18/19 97.5 07:54 02/17/19 5.0 22:29 Intake and Output 02/17/19 02/17/19 02/18/19 1515:00 23:00 07:00 IntakeIntake Total 200 ml BalanceBalance 200 ml Exam Constitutional: alert, well developed, other (tachypneic) Psych: anxiety Head: normocephalic, atraumatic Eyes: EOMI, nl lids ENMT: nl external ears & nose Neck: jvd (JVP elevated); No bruits Respiratory: crackles/rales; No intercostal retraction Cardiovascular: regular rate and rhythm, other (tachycardic); No nl pulses (absent pt and dp pulses) Gastrointestinal: soft, distended Musculoskeletal: nl extremities to inspection Extremities: No normal pulses, No edema Neurological: nl speech Skin: nl turgor Labs Result Diagram: 02/18/19 0529 02/18/19 0529 Results 24hrs Laboratory Tests Test 02/17/19 10:59 02/17/19 18:02 02/17/19 19:00 02/17/19 20:15 White Blood Count 18.0 #H Red Blood Count 3.70 L Hemoglobin 11.3 L Hematocrit 35.5 L Mean Corpuscular 95.9 Volume Mean Corpuscular 30.5 Hemoglobin Mean Corpuscular 31.8 L Hemoglobin Concent Red Cell 13.0 Distribution Width Platelet Count 205 Mean Platelet Volume 11.6 H Immature 0.400 Granulocytes % Neutrophils % 71.4 Lymphocytes % 21.9 Monocytes % 5.8 Eosinophils % 0.2 Basophils % 0.3 Nucleated Red Blood 0.0 Cells % Immature 0.080 H Granulocytes # Neutrophils # 12.8 H Lymphocytes # 3.9 H Monocytes # 1.0 H Eosinophils # 0.0 Basophils # 0.1 Nucleated Red Blood 0.0 Cells # Prothrombin Time 13.7 Prothrombin Time 1.1 Ratio INR International 1.04 Normalized Ratio Activated 28.0 Partial Thromboplast Time Sodium Level 139 Potassium Level 4.0 Chloride Level 103 Carbon Dioxide Level 25 Anion Gap 11 Blood Urea Nitrogen 20 Creatinine 0.94 Est Glomerular 59 L Filtrat Rate mL/min Glucose Level 236 H Calcium Level 8.4 Total Bilirubin 0.9 Direct Bilirubin 0.00 Indirect Bilirubin 0.9 Aspartate Amino 147 H Transf (AST/SGOT) Alanine 32 Aminotransferase (AL T/SGPT) Alkaline Phosphatase 133 H Creatine Kinase 1008 H Creatine Kinase 6.5 Index Creatinine Kinase MB 65.60 H (Mass) Troponin I 15.900 *H 15.500 *H B-Type Natriuretic 7380 H Peptide Total Protein 7.3 Albumin 3.8 Globulin 3.50 H Albumin/Globulin 1.08 Ratio Bedside Glucose 457 *H 512 *H Test 02/17/19 22:05 02/17/19 23:55 02/18/19 00:20 02/18/19 02:03 Bedside Glucose 478 *H 394 H 306 H Troponin I 26.500 *H Test 02/18/19 05:29 02/18/19 06:19 White Blood Count 18.5 H Red Blood Count 3.46 L Hemoglobin 10.5 L Hematocrit 32.6 L Mean Corpuscular 94.2 Volume Mean Corpuscular 30.3 Hemoglobin Mean Corpuscular 32.2 Hemoglobin Concent Red Cell 13.1 Distribution Width Platelet Count 229 Mean Platelet Volume 12.2 H Immature 0.500 H Granulocytes % Neutrophils % 83.4 H Lymphocytes % 8.6 L Monocytes % 7.4 Eosinophils % 0.0 Basophils % 0.1 Nucleated Red Blood 0.0 Cells % Immature 0.090 H Granulocytes # Neutrophils # 15.5 H Lymphocytes # 1.6 Monocytes # 1.4 H Eosinophils # 0.0 Basophils # 0.0 Nucleated Red Blood 0.0 Cells # Sodium Level 139 Potassium Level 4.8 Chloride Level 106 Carbon Dioxide Level 27 Anion Gap 6 Blood Urea Nitrogen 33 #H Creatinine 1.02 H Est Glomerular 54 L Filtrat Rate mL/min Glucose Level 255 H Hemoglobin A1c 9.6 H Calcium Level 9.0 Total Bilirubin 0.6 Direct Bilirubin 0.00 Indirect Bilirubin 0.6 Aspartate Amino 168 H Transf (AST/SGOT) Alanine 36 Aminotransferase (AL T/SGPT) Alkaline Phosphatase 116 Troponin I 32.500 *H Total Protein 7.2 Albumin 3.7 Globulin 3.50 H Albumin/Globulin 1.05 Ratio Triglycerides Level 117 Cholesterol Level 182 LDL Cholesterol, 128 Calculated HDL Cholesterol 31 L Cholesterol/HDL 5.8 Ratio Bedside Glucose 221 H Imaging Imaging EKG with severely reduced LVEF, EKG yesterday shows sinus tach with ST depressions in inferior and anterolateral leads, poor r wave progression Medications Medications Current Medications Escitalopram Oxalate (Lexapro) 10 mg DAILY PO ; Start 02/17/19 at 13:00 Montelukast Sodium (Singulair) 10 mg QHS PO Last administered on 02/17/19at 21:09; Admin Dose 10 MG; Start 02/17/19 at 21:00 Acetaminophen (Tylenol Tab) 1,000 mg Q4 PRN PO pain; Start 02/17/19 at 13:00 Ondansetron HCl (Zofran Inj) 4 mg Q4 PRN IV nausea; Start 02/17/19 at 13:00 Zolpidem Tartrate (Ambien) 5 mg HS MAY REPEAT X 1 PRN PO INSOMNIA; Start 02/17/19 at 13:00 Insulin Glargine (Lantus) 50 units DAILY@2000 SC ; Start 02/18/19 at 20:00 Insulin Aspart (Novolog Insulin Pen) 12 unit WITH MEALS SC Last administered on 02/17/19at 19:40; Admin Dose 12 UNIT; Start 02/17/19 at 19:00 Diagnostic Test (Pha) (Accu-Chek) 1 ea 02 XX ; Start 02/18/19 at 02:00 Insulin Aspart (Novolog Insulin Pen) NOVOLOG *MODERATE* ALGORITHM WITH MEALS BEDTIME SC Last administered on 02/17/19at 21:35; Admin Dose 4 UNIT; Start 02/17/19 at 21:00 Miscellaneous Information 1 ea NOTE XX ; Start 02/17/19 at 19:00 Glucose (Glutose) 15 gm Q15M PRN PO DECREASED GLUCOSE; Start 02/17/19 at 19:00 Glucose (Glutose) 22.5 gm Q15M PRN PO DECREASED GLUCOSE; Start 02/17/19 at 19:00 Dextrose (D50w Syringe) 25 ml Q15M PRN IV DECREASED GLUCOSE; Start 02/17/19 at 19:00 Dextrose (D50w Syringe) 50 ml Q15M PRN IV DECREASED GLUCOSE; Start 02/17/19 at 19:00 Glucagon (Glucagen) 1 mg Q15M PRN IM DECREASED GLUCOSE; Start 02/17/19 at 19:00 Glucose (Glutose) 15 gm Q15M PRN BUCCAL DECREASED GLUCOSE; Start 02/17/19 at 19:00 Atorvastatin Calcium (Lipitor) 80 mg QHS PO ; Start 02/18/19 at 21:00 Aspirin (Aspirin) 81 mg DAILY PO Last administered on 02/18/19at 09:26; Admin Dose 81 MG; Start 02/18/19 at 09:00 Metoprolol Succinate (Toprol Xl) 12.5 mg DAILY PO ; Start 02/18/19 at 09:00 Albuterol/ Ipratropium (Duoneb) 3 ml Q6H RESP THERAPY HHN Last administered on 02/18/19at 08:45; Admin Dose 3 ML; Start 02/18/19 at 02:00 Albuterol/ Ipratropium (Duoneb) 3 ml Q6H RESP THERAPY PRN HHN SHORTNESS OF BREATH; Start 02/17/19 at 22:30 Furosemide (Lasix) 20 mg ONCE ONCE IV Last administered on 02/18/19at 09:26; Admin Dose 20 MG; Start 02/18/19 at 09:30; Stop 02/18/19 at 09:31 Lisinopril (Zestril) 2.5 mg DAILY PO ; Start 02/18/19 at 09:30 RUDY LONDON February 18, 2019 09:38
[2019-02-18] MEDS: ENOXAPARIN 100 MG/ML SYG SC SCH ×2 (11:15→20:56)
[2019-02-18] MEDS: INSULIN ASPART [NOVOLOG] 3 ML PEN SC SCH ×7 (11:30→20:29)
[2019-02-18] MEDS: LISINOPRIL 5 MG TAB PO SCH (13:07)
[2019-02-18] MEDS: FUROSEMIDE 20 MG INJ IV SCH ×2 (13:07→20:47)
[2019-02-18] MEDS: ACETAMINOPHEN 500 MG TAB PO PRN ×2 (19:28→20:29)
[2019-02-18] MEDS ORDERED: INSULIN GLARGINE [LANTus] (100 UNITS/ML) SYG SC SCH (20:00)
[2019-02-18] MEDS: MONTELUKAST 10 MG TAB PO SCH (20:48)
[2019-02-18] MEDS: ATORVASTATIN 80 MG TAB PO SCH (20:48)
[2019-02-18] MEDS: morphine 2 MG INJ IV PRN ×2 (21:01→23:02)
[2019-02-18] MEDS ORDERED: morphine 2 MG INJ IV STA (23:37)
[2019-02-18] MEDS ORDERED: ACETAMINOPHEN 325 MG TAB PO STA (23:37)
[2019-02-19] VITALS (28 sets, daily range): BP systolic 92–109; BP diastolic 51–72; PULSE 93–128; RESP 13–30
[2019-02-19] MEDS ORDERED: NITROGLYCERIN (SL) 0.4 MG TAB SL PRN
[2019-02-19] MEDS: morphine 2 MG INJ IV PRN (01:09)
[2019-02-19] MEDS: ALBUTEROL/IPRATROPIUM (NEB) 3 ML AMP HHN SCH ×4 (01:14→19:35)
[2019-02-19] MEDS: ACCU-CHEK XX SCH (02:06)
[2019-02-19] MEDS: morphine 4 MG/ML VIAL IV PRN ×5 (02:07→19:18)
[2019-02-19] MEDS: ZOLPIDEM 5 MG TAB PO PRN ×2 (03:16→20:47)
[2019-02-19] MEDS ORDERED: DIAZEPAM 5 MG TAB PO ONE (07:30)
[2019-02-19] MEDS ORDERED: DIPHENHYDRAMINE 50 MG CAP PO ONE (07:30)
--- NOTE | 2019-02-19 07:33 | CONS ---
Assessment/Plan Cardiology NYHA: IV Heart Failure Type: Acute Heart Failure Type: Both Assessment/Plan Hospital Course (Demo Recall) 68 yo with NSTEMI and acute heart failure Impression: NSTEMI Acute diastolic and systolic heart failure, improved with diuresis Shoulder/chest pain, noncardiac Diabetes uncontrolled Recommendations: Can stop furosemide, she has put out over 2 L of urine CXR today Metoprolol and lisinopril, metoprolol was held yesterday by nursing Coronary angiography tomorrow afternoon, risks and benefits discussed with pt and son, she agrees to proceed Lovenox 1 mg/kg sq q 12 for 2 more doses, asa, high intensity statin Will add spironolactone when able Consultation Date/Type/Reason Admit Date/Time February 17, 2019 at 13:03 Initial Consult Date 02/18/19 Type of Consult Cardiology Requesting Provider: NILAY NORTON MD Date/Time of Note DATE: 02/19/19 TIME: 07:27 24 HR Interval Summary Free Text/Dictation Overnight had chest pain that was classified as "10/10", was sharp in nature, eventually relieved with nitroglycerin, without ekg changes, and troponin trending downward. This am she points to her left shoulder as a source of pain. She did not present with chest pain. She is still with the bipap and says she is breathing better. Son at bedside. Exam/Review of Systems Vital Signs Vitals Vital Signs Date Temp Pulse Resp B/P (MAP) Pulse Ox O2 O2 Flow FiO2 Time Delivery Rate 02/19/19 107 98 30 05:22 02/19/19 16 99/66 (77) 05:00 02/19/19 98.9 04:00 02/19/19 BIPAP 00:00 02/18/19 3.0 23:00 Intake and Output 02/18/19 02/18/19 02/19/19 1515:00 23:00 07:00 OutputOutput Total 1000 ml 975 ml 355 ml BalanceBalance -1000 ml -975 ml -355 ml Exam Constitutional: alert, oriented Psych: no complaints, nl mood/affect Head: normocephalic, atraumatic Eyes: EOMI, nl lids ENMT: nl external ears & nose Neck: No jvd, No bruits Respiratory: clear to auscultation (anteriorly), normal air movement Cardiovascular: regular rate and rhythm; No murmurs/extra sounds Gastrointestinal: soft, nl liver, spleen, non-tender Musculoskeletal: nl extremities to inspection Extremities: No edema Neurological: nl speech Skin: nl turgor Labs Result Diagram: 02/19/1951802/19/19518 Results 24hrs Laboratory Tests Test 02/18/19 11:10 02/18/19 13:27 02/18/19 17:40 02/18/19 20:14 Bedside Glucose 150 107 144 80 Test 02/19/19 05:19 White Blood Count 17.6 H Red Blood Count 3.35 L Hemoglobin 10.2 L Hematocrit 32.3 L Mean Corpuscular 96.4 Volume Mean Corpuscular 30.4 Hemoglobin Mean Corpuscular 31.6 L Hemoglobin Concent Red Cell 13.3 Distribution Width Platelet Count 243 Mean Platelet Volume 12.2 H Immature 0.500 H Granulocytes % Neutrophils % 81.6 H Lymphocytes % 9.7 L Monocytes % 8.0 Eosinophils % 0.0 Basophils % 0.2 Nucleated Red Blood 0.0 Cells % Immature 0.080 H Granulocytes # Neutrophils # 14.3 H Lymphocytes # 1.7 Monocytes # 1.4 H Eosinophils # 0.0 Basophils # 0.0 Nucleated Red Blood 0.0 Cells # Sodium Level 141 Potassium Level 4.1 Chloride Level 105 Carbon Dioxide Level 28 Anion Gap 8 Blood Urea Nitrogen 35 H Creatinine 1.08 H Est Glomerular 50 L Filtrat Rate mL/min Glucose Level 138 # Calcium Level 8.5 Troponin I 29.600 *H Medications Medications Current Medications Escitalopram Oxalate (Lexapro) 10 mg DAILY PO ; Start 02/17/19 at 13:00 Montelukast Sodium (Singulair) 10 mg QHS PO Last administered on 02/18/19at 20:48; Admin Dose 10 MG; Start 02/17/19 at 21:00 Acetaminophen (Tylenol Tab) 1,000 mg Q4 PRN PO pain Last administered on 02/18/19at 19:28; Admin Dose 1,000 MG; Start 02/17/19 at 13:00 Ondansetron HCl (Zofran Inj) 4 mg Q4 PRN IV nausea; Start 02/17/19 at 13:00 Zolpidem Tartrate (Ambien) 5 mg HS MAY REPEAT X 1 PRN PO INSOMNIA Last administered on 02/19/19at 03:16; Admin Dose 5 MG; Start 02/17/19 at 13:00 Insulin Glargine (Lantus) 50 units DAILY@2000 SC ; Start 02/18/19 at 20:00 Insulin Aspart (Novolog Insulin Pen) 12 unit WITH MEALS SC Last administered on 02/18/19at 17:59; Admin Dose 12 UNIT; Start 02/17/19 at 19:00 Diagnostic Test (Pha) (Accu-Chek) 1 ea 02 XX Last administered on 02/19/19at 02:06; Admin Dose 1 EA; Start 02/18/19 at 02:00 Insulin Aspart (Novolog Insulin Pen) NOVOLOG *MODERATE* ALGORITHM WITH MEALS BEDTIME SC Last administered on 02/18/19 18:00; Admin Dose 2 UNIT; Start 02/17/19 at 21:00 Miscellaneous Information 1 ea NOTE XX ; Start 02/17/19 at 19:00 Glucose (Glutose) 15 gm Q15M PRN PO DECREASED GLUCOSE; Start 02/17/19 at 19:00 Glucose (Glutose) 22.5 gm Q15M PRN PO DECREASED GLUCOSE; Start 02/17/19 at 19:00 Dextrose (D50w Syringe) 25 ml Q15M PRN IV DECREASED GLUCOSE; Start 02/17/19 at 19:00 Dextrose (D50w Syringe) 50 ml Q15M PRN IV DECREASED GLUCOSE; Start 02/17/19 at 19:00 Glucagon (Glucagen) 1 mg Q15M PRN IM DECREASED GLUCOSE; Start 02/17/19 at 19:00 Glucose (Glutose) 15 gm Q15M PRN BUCCAL DECREASED GLUCOSE; Start 02/17/19 at 19:00 Atorvastatin Calcium (Lipitor) 80 mg QHS PO Last administered on 02/18/19at 20:48; Admin Dose 80 MG; Start 02/18/19 at 21:00 Aspirin (Aspirin) 81 mg DAILY PO Last administered on 02/18/19at 09:26; Admin Dose 81 MG; Start 02/18/19 at 09:00 Metoprolol Succinate (Toprol Xl) 12.5 mg DAILY PO ; Start 02/18/19 at 09:00 Albuterol/ Ipratropium (Duoneb) 3 ml Q6H RESP THERAPY HHN Last administered on 02/19/19at 01:14; Admin Dose 3 ML; Start 02/18/19 at 02:00 Albuterol/ Ipratropium (Duoneb) 3 ml Q6H RESP THERAPY PRN HHN SHORTNESS OF BREATH; Start 02/17/19 at 22:30 Lisinopril (Zestril) 2.5 mg DAILY PO Last administered on 02/18/19at 13:07; Admin Dose 2.5 MG; Start 02/18/19 at 09:30 Enoxaparin Sodium (Lovenox) 80 mg Q12 SC Last administered on 02/18/19at 20:56; Admin Dose 80 MG; Start 02/18/19 at 10:00 Furosemide (Lasix) 20 mg TID IV Last administered on 02/18/19at 20:47; Admin Dose 20 MG; Start 02/18/19 at 13:00 Nitroglycerin (Nitroglycerin (Sl Tab) 0.4 Mg) 1 tab Q5M PRN SL ANGINA; Start 02/19/19 at 00:00 Morphine Sulfate (morphine) 3 mg Q1H PRN IV CHEST PAIN Last administered on at 06:53; Admin Dose 3 MG; Start 02/19/19 at 01:30 Diazepam (Valium) 10 mg OC ONCE PO ; Start 02/19/19 at 07:30; Stop 02/19/19 at 07:31; Status UNV Diphenhydramine HCl (Benadryl) 50 mg OC ONCE PO ; Start 02/19/19 at 07:30; Stop 02/19/19 at 07:31; Status UNV RUDY LONDON February 19, 2019 07:33
[2019-02-19] MEDS: INSULIN ASPART [NOVOLOG] 3 ML PEN SC SCH ×7 (08:13→20:57)
[2019-02-19] MEDS: ENOXAPARIN 100 MG/ML SYG SC SCH ×2 (08:57→20:56)
[2019-02-19] MEDS: ASPIRIN 81 MG TAB PO SCH (08:58)
[2019-02-19] MEDS: METOPROLOL (XL) 25 MG TAB PO SCH (08:58)
[2019-02-19] MEDS: ESCITALOPRAM 10 MG TAB PO SCH (08:59)
[2019-02-19] MEDS: LISINOPRIL 5 MG TAB PO SCH (09:00)
--- NOTE | 2019-02-19 09:25 | PN ---
Date/Time of Note Date/Time of Note DATE: 02/19/19 TIME: 09:20 Subjective Patient complains of left shoulder pain. Shortness of breath improved Objective Vitals Vital Signs Date Temp Pulse Resp B/P (MAP) Pulse Ox O2 O2 Flow FiO2 Time Delivery Rate 02/19/19 103 08:00 02/19/19 3.0 07:56 02/19/19 98 30 05:22 02/19/19 16 99/66 (77) 05:00 02/19/19 98.9 04:00 02/19/19 BIPAP 00:00 Intake and Output 02/18/19 02/18/19 02/19/19 1515:00 23:00 07:00 OutputOutput Total 1000 ml 975 ml 355 ml BalanceBalance -1000 ml -975 ml -355 ml Neck is supple Left shoulder tender to palpation with limited range of motion. Lungs with mild rhonchi. No crackles Cardiac regular rate and rhythm no murmurs or gallops Abdomen soft nontender nondistended normoactive bowel sounds Extremities no edema Neurological nonfocal Results Result Diagram: 02/19/1951802/19/19518 Medications Medications Current Medications Escitalopram Oxalate (Lexapro) 10 mg DAILY PO ; Start 02/17/19 at 13:00 Montelukast Sodium (Singulair) 10 mg QHS PO Last administered on 02/18/19at 20:48; Admin Dose 10 MG; Start 02/17/19 at 21:00 Acetaminophen (Tylenol Tab) 1,000 mg Q4 PRN PO pain Last administered on 02/18/19at 19:28; Admin Dose 1,000 MG; Start 02/17/19 at 13:00 Ondansetron HCl (Zofran Inj) 4 mg Q4 PRN IV nausea; Start 02/17/19 at 13:00 Zolpidem Tartrate (Ambien) 5 mg HS MAY REPEAT X 1 PRN PO INSOMNIA Last administered on 02/19/19at 03:16; Admin Dose 5 MG; Start 02/17/19 at 13:00 Insulin Glargine (Lantus) 50 units DAILY@2000 SC ; Start 02/18/19 at 20:00 Diagnostic Test (Pha) (Accu-Chek) 1 ea 02 XX Last administered on 02/19/19at 02:06; Admin Dose 1 EA; Start 02/18/19 at 02:00 Insulin Aspart (Novolog Insulin Pen) NOVOLOG *MODERATE* ALGORITHM WITH MEALS BEDTIME SC Last administered on 02/19/19at 08:14; Admin Dose 2 UNIT; Start 02/17/19 at 21:00 Miscellaneous Information 1 ea NOTE XX ; Start 02/17/19 at 19:00 Glucose (Glutose) 15 gm Q15M PRN PO DECREASED GLUCOSE; Start 02/17/19 at 19:00 Glucose (Glutose) 22.5 gm Q15M PRN PO DECREASED GLUCOSE; Start 02/17/19 at 19:00 Dextrose (D50w Syringe) 25 ml Q15M PRN IV DECREASED GLUCOSE; Start 02/17/19 at 19:00 Dextrose (D50w Syringe) 50 ml Q15M PRN IV DECREASED GLUCOSE; Start 02/17/19 at 19:00 Glucagon (Glucagen) 1 mg Q15M PRN IM DECREASED GLUCOSE; Start 02/17/19 at 19:00 Glucose (Glutose) 15 gm Q15M PRN BUCCAL DECREASED GLUCOSE; Start 02/17/19 at 19:00 Atorvastatin Calcium (Lipitor) 80 mg QHS PO Last administered on 02/18/19at 20:48; Admin Dose 80 MG; Start 02/18/19 at 21:00 Aspirin (Aspirin) 81 mg DAILY PO Last administered on 02/19/19at 08:58; Admin Dose 81 MG; Start 02/18/19 at 09:00 Metoprolol Succinate (Toprol Xl) 12.5 mg DAILY PO Last administered on 02/19/19at 08:58; Admin Dose 12.5 MG; Start 02/18/19 at 09:00 Albuterol/ Ipratropium (Duoneb) 3 ml Q6H RESP THERAPY HHN Last administered on 02/19/19at 07:57; Admin Dose 3 ML; Start 02/18/19 at 02:00 Albuterol/ Ipratropium (Duoneb) 3 ml Q6H RESP THERAPY PRN HHN SHORTNESS OF BREATH; Start 02/17/19 at 22:30 Lisinopril (Zestril) 2.5 mg DAILY PO Last administered on 02/18/19at 13:07; Admin Dose 2.5 MG; Start 02/18/19 at 09:30 Enoxaparin Sodium (Lovenox) 80 mg Q12 SC Last administered on 02/19/19at 08:57; Admin Dose 80 MG; Start 02/18/19 at 10:00; Stop 02/20/19 at 01:00 Nitroglycerin (Nitroglycerin (Sl Tab) 0.4 Mg) 1 tab Q5M PRN SL ANGINA; Start 02/19/19 at 00:00 Morphine Sulfate (morphine) 3 mg Q1H PRN IV CHEST PAIN Last administered on 02/19/19at 06:53; Admin Dose 3 MG; Start 02/19/19 at 01:30 Insulin Aspart (Novolog Insulin Pen) 15 unit WITH MEALS SC ; Start 02/19/19 at 11:30 VTE Prophylaxis Risk score (from Nsg)>0 risk: 7 SCD applied (from Nsg): Yes Lines/Catheters IV Catheter Type: Saline Lock Light in Place: Yes Cont'd light catheter reason: other (indicate) (ICU stay post [place]) Assessment/Plan Assessment/Plan 68-year-old female with acute non-STEMI Acute systolic and diastolic congestive heart failure exacerbation Ischemic cardiomyopathy Poorly controlled type 2 diabetes mellitus Left shoulder pain Chronic asthma, compensated Hold diuresis Continue low-dose metoprolol and GEOVANI inhibitor as blood pressure allows Increase Lantus insulin to 55 units daily Increase short acting insulin to 15 units before each meal Left shoulder x-ray Cardiology follow-up is appreciated Patient is a scheduled to undergo coronary angiography tomorrow afternoon NILAY NORTON MD February 19, 2019 09:25
[2019-02-19] MEDS ORDERED: INSULIN GLARGINE [LANTus] (100 UNITS/ML) SYG SC SCH (20:00)
[2019-02-19] MEDS: DICLOFENAC SODIUM 1% GEL 100 GM TUBE TP PRN (20:47)
[2019-02-19] MEDS: ATORVASTATIN 80 MG TAB PO SCH (20:47)
[2019-02-19] MEDS: MONTELUKAST 10 MG TAB PO SCH (20:47)
[2019-02-20] VITALS (39 sets, daily range): BP systolic 84–120; BP diastolic 48–75; PULSE 97–121; RESP 15–29
[2019-02-20] MEDS: ACCU-CHEK XX SCH (01:07)
[2019-02-20] MEDS: ALBUTEROL/IPRATROPIUM (NEB) 3 ML AMP HHN SCH ×4 (01:21→19:49)
[2019-02-20] MEDS: morphine 4 MG/ML VIAL IV PRN (05:12)
[2019-02-20] MEDS: INSULIN ASPART [NOVOLOG] 3 ML PEN SC SCH ×7 (07:35→21:00)
[2019-02-20] MEDS: LISINOPRIL 5 MG TAB PO SCH (09:00)
--- NOTE | 2019-02-20 09:04 | PN ---
Date/Time of Note Date/Time of Note DATE: 02/20/19 TIME: 09:01 Subjective Doing well. No complaint of chest pain. Left shoulder pain is well controlled. Objective Vitals Vital Signs Date Temp Pulse Resp B/P (MAP) Pulse Ox O2 O2 Flow FiO2 Time Delivery Rate 02/20/19 98.5 107 15 104/66 98 BIPAP 08:00 (79) 02/20/19 30 07:54 02/19/19 5.0 18:00 Intake and Output 02/19/19 02/19/19 02/20/19 1515:00 23:00 07:00 IntakeIntake Total 400 ml 0 ml OutputOutput Total 320 ml 290 ml 210 ml BalanceBalance 80 ml -290 ml -210 ml Neck supple Lungs clear to auscultation bilaterally Cardiac rapid rate no murmurs or gallops Abdomen soft nontender nondistended normoactive bowel sounds Extremities no edema Neurological nonfocal Results Result Diagram: 02/20/19 0513 02/20/19 0513 Medications Medications Current Medications Escitalopram Oxalate (Lexapro) 10 mg DAILY PO ; Start 02/17/19 at 13:00 Montelukast Sodium (Singulair) 10 mg QHS PO Last administered on 02/19/19at 20:47; Admin Dose 10 MG; Start 02/17/19 at 21:00 Acetaminophen (Tylenol Tab) 1,000 mg Q4 PRN PO pain Last administered on 02/18/19 19:28; Admin Dose 1,000 MG; Start 02/17/19 at 13:00 Ondansetron HCl (Zofran Inj) 4 mg Q4 PRN IV nausea; Start 02/17/19 at 13:00 Zolpidem Tartrate (Ambien) 5 mg HS MAY REPEAT X 1 PRN PO INSOMNIA Last administered on 02/19/19 20:47; Admin Dose 5 MG; Start 02/17/19 at 13:00 Diagnostic Test (Pha) (Accu-Chek) 1 ea 02 XX Last administered on 02/19/19 02:06; Admin Dose 1 EA; Start 02/18/19 at 02:00 Insulin Aspart (Novolog Insulin Pen) NOVOLOG *MODERATE* ALGORITHM WITH MEALS B EDTIME SC Last administered on 02/20/19at 08:14; Admin Dose 2 UNIT; Start 02/17/19 at 21:00 Miscellaneous Information 1 ea NOTE XX ; Start 02/17/19 at 19:00 Glucose (Glutose) 15 gm Q15M PRN PO DECREASED GLUCOSE; Start 02/17/19 at 19:00 Glucose (Glutose) 22.5 gm Q15M PRN PO DECREASED GLUCOSE; Start 02/17/19 at 19:00 Dextrose (D50w Syringe) 25 ml Q15M PRN IV DECREASED GLUCOSE; Start 02/17/19 at 19:00 Dextrose (D50w Syringe) 50 ml Q15M PRN IV DECREASED GLUCOSE; Start 02/17/19 at 19:00 Glucagon (Glucagen) 1 mg Q15M PRN IM DECREASED GLUCOSE; Start 02/17/19 at 19:00 Glucose (Glutose) 15 gm Q15M PRN BUCCAL DECREASED GLUCOSE; Start 02/17/19 at 19:00 Atorvastatin Calcium (Lipitor) 80 mg QHS PO Last administered on 02/19/19at 20:47; Admin Dose 80 MG; Start 02/18/19 at 21:00 Aspirin (Aspirin) 81 mg DAILY PO Last administered on 02/19/19at 08:58; Admin Dose 81 MG; Start 02/18/19 at 09:00 Metoprolol Succinate (Toprol Xl) 12.5 mg DAILY PO Last administered on 02/19/19at 08:58; Admin Dose 12.5 MG; Start 02/18/19 at 09:00 Albuterol/ Ipratropium (Duoneb) 3 ml Q6H RESP THERAPY HHN Last administered on 02/20/19at 07:53; Admin Dose 3 ML; Start 02/18/19 at 02:00 Albuterol/ Ipratropium (Duoneb) 3 ml Q6H RESP THERAPY PRN HHN SHORTNESS OF BREATH; Start 02/17/19 at 22:30 Lisinopril (Zestril) 2.5 mg DAILY PO Last administered on 02/18/19at 13:07; Admin Dose 2.5 MG; Start 02/18/19 at 09:30 Nitroglycerin (Nitroglycerin (Sl Tab) 0.4 Mg) 1 tab Q5M PRN SL ANGINA; Start 02/19/19 at 00:00 Morphine Sulfate (morphine) 3 mg Q1H PRN IV CHEST PAIN Last administered on 02/20/19at 05:12; Admin Dose 3 MG; Start 02/19/19 at 01:30 Insulin Aspart (Novolog Insulin Pen) 15 unit WITH MEALS SC Last administered on 02/19/19at 16:12; Admin Dose 15 UNIT; Start 02/19/19 at 11:30 Insulin Glargine (Lantus) 55 units DAILY@2000 SC ; Start 02/19/19 at 20:00; Status Hold Diclofenac Sodium (Voltaren 1% Gel) 2 gm QID PRN TP PAIN Last administered on 02/19/19at 20:47; Admin Dose 2 GM; Start 02/19/19 at 18:30 VTE Prophylaxis Risk score (from Nsg)>0 risk: 5 SCD applied (from Ns): Yes Lines/Catheters IV Catheter Type: Saline Lock Light in Place: Yes (ICU status) Cont'd light catheter reason: other (indicate) (ICU status) Assessment/Plan Assessment/Plan 68-year-old female with acute non-STEMI Acute systolic and diastolic congestive heart failure exacerbation, improved with diuresis Type 2 diabetes mellitus Anemia of chronic disease History of hypertension Chronic asthma, compensated Continue current therapy On-call to [facility] this afternoon Plan of care was discussed with the patient and her son at the bedside NILAY NORTON MD February 20, 2019 09:04
[2019-02-20] MEDS: ESCITALOPRAM 10 MG TAB PO SCH (09:29)
[2019-02-20] MEDS: METOPROLOL (XL) 25 MG TAB PO SCH (09:29)
[2019-02-20] MEDS: ASPIRIN 81 MG TAB PO SCH (09:29)
--- NOTE | 2019-02-20 09:44 | CONS ---
Assessment/Plan Assessment/Plan Assessment/Plan (Daily) Assessment and recommendations; 1. Patient admitted with acute CA with CHF with interval radiological and clinical improvement. 2. History of hypertension. 3. History of depression. 4. Anemia and thrombocytopenia which are both mild. Continue current supportive care. Patient scheduled for coronary angiography today. Continue BiPAP for now. Obtain follow-up chest x-ray 24 hours. Consultation Date/Type/Reason Admit Date/Time February 17, 2019 at 13:03 Date of Consultation: February 20, 2019 Type of Consult Pulmonary/critical care Patient is a pleasant 68-year-old lady who has been admitted to the hospital because of acute onset of shortness of breath due to acute CA with positive troponins. Patient has been on BiPAP with significant improvement in symptoms. She denies any chest pain, coughing, wheezing, sputum production or hemoptysis. By the time I saw her in ICU, patient was laying comfortably in bed on BiPAP. And did not appear to be in any distress whatsoever. Past medical history; 1. History of diabetes 2. Possibly CHF 3. Hypertension Medications; reviewed Allergies; none Social history; patient has been a lifelong non-smoker. Family history; brother had CAD. 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 Review of systems; limited review of system could be obtained as the patient is on BiPAP. She reports decreased shortness of breath. Denies any chest pain, angina, wheezing, any sputum production. Any nausea vomiting. Any fever or chills. Any bleeding tendencies. General exam; elderly lady, awake and alert. Currently in no distress. On BiPAP. Date/Time of Note DATE: 02/20/19 TIME: 09:41 Past Medical History Home Meds Reported Medications Escitalopram Oxalate* (Lexapro*) 10 Mg Tablet, 10 MG PO DAILY, #30 TAB 02/17/19 Omeprazole* (Omeprazole*) 40 Mg Capsule.dr, 40 MG PO DAILY, #30 CAP 02/17/19 Montelukast Sodium* (Montelukast Sodium*) 10 Mg Tablet, 10 MG PO QHS, #30 TAB 02/17/19 Atorvastatin Calcium* (Atorvastatin Calcium*) 20 Mg Tablet, 20 MG PO QHS, #30 TAB 02/17/19 Meloxicam* (Meloxicam*) 7.5 Mg Tablet, 7.5 MG PO DAILY, #30 TAB 02/17/19 Insulin Lispro (Humalog Kwikpen U-100) 100 Unit/1 Ml Insuln.pen, 12 UNIT SQ AC A, EA 02/17/19 Insulin Glargine* (Lantus*) 100 Unit/Ml Soln, 50 UNIT SC QHS, #1 VIAL 02/17/19 Losartan Potassium* (Losartan Potassium*) 100 Mg Tablet, 100 MG PO DAILY, TAB 02/17/19 Aspirin (Low Dose Aspirin) 81 Mg Tablet.dr, 81 MG PO DAILY, #30 TAB 02/17/19 Metformin Hcl* (Metformin Hcl*) 850 Mg Tablet, 850 MG PO WITH BREAKFAST DINNE, #60 TAB 02/17/19 Discontinued Reported Medications Amlodipine Besylate* (Norvasc*) 5 Mg Tablet, 5 MG PO DAILY, TAB 02/17/19 Discontinued Scripts Ondansetron (Ondansetron Odt) 4 Mg Tab.rapdis, 4 MG PO Q6H PRN for NAUSEA AND/OR VOMITING, #30 TAB Prov:DEE PAVON MD 04/07/17 Hydrocodone/Acetaminophen ([place] 10-325 Tablet) 1 Each Tablet, 1 TAB PO Q6H PRN for PAIN, #7 TAB Prov:DEE PAVON MD 04/07/17 Medications Current Medications Escitalopram Oxalate (Lexapro) 10 mg DAILY PO Last administered on 02/20/19at 09:29; Admin Dose 10 MG; Start 02/17/19 at 13:00 Montelukast Sodium (Singulair) 10 mg QHS PO Last administered on 02/19/19at 20: 47; Admin Dose 10 MG; Start 02/17/19 at 21:00 Acetaminophen (Tylenol Tab) 1,000 mg Q4 PRN PO pain Last administered on 02/18/19at 19:28; Admin Dose 1,000 MG; Start 02/17/19 at 13:00 Ondansetron HCl (Zofran Inj) 4 mg Q4 PRN IV nausea; Start 02/17/19 at 13:00 Zolpidem Tartrate (Ambien) 5 mg HS MAY REPEAT X 1 PRN PO INSOMNIA Last administered on 02/19/19at 20:47; Admin Dose 5 MG; Start 02/17/19 at 13:00 Diagnostic Test (Pha) (Accu-Chek) 1 ea 02 XX Last administered on 02/19/19at 02:06; Admin Dose 1 EA; Start 02/18/19 at 02:00 Insulin Aspart (Novolog Insulin Pen) NOVOLOG *MODERATE* ALGORITHM WITH MEALS BEDTIME SC Last administered on 02/20/19at 08:14; Admin Dose 2 UNIT; Start 02/17/19 at 21:00 Miscellaneous Information 1 ea NOTE XX ; Start 02/17/19 at 19:00 Glucose (Glutose) 15 gm Q15M PRN PO DECREASED GLUCOSE; Start 02/17/19 at 19:00 Glucose (Glutose) 22.5 gm Q15M PRN PO DECREASED GLUCOSE; Start 02/17/19 at 19:00 Dextrose (D50w Syringe) 25 ml Q15M PRN IV DECREASED GLUCOSE; Start 02/17/19 at 19:00 Dextrose (D50w Syringe) 50 ml Q15M PRN IV DECREASED GLUCOSE; Start 02/17/19 at 19:00 Glucagon (Glucagen) 1 mg Q15M PRN IM DECREASED GLUCOSE; Start 02/17/19 at 19:00 Glucose (Glutose) 15 gm Q15M PRN BUCCAL DECREASED GLUCOSE; Start 02/17/19 at 19:00 Atorvastatin Calcium (Lipitor) 80 mg QHS PO Last administered on 02/19/19at 20:47; Admin Dose 80 MG; Start 02/18/19 at 21:00 Aspirin (Aspirin) 81 mg DAILY PO Last administered on 02/20/19at 09:29; Admin Dose 81 MG; Start 02/18/19 at 09:00 Metoprolol Succinate (Toprol Xl) 12.5 mg DAILY PO Last administered on 02/20/19at 09:29; Admin Dose 12.5 MG; Start 02/18/19 at 09:00 Albuterol/ Ipratropium (Duoneb) 3 ml Q6H RESP THERAPY HHN Last administered on 02/20/19at 07:53; Admin Dose 3 ML; Start 02/18/19 at 02:00 Albuterol/ Ipratropium (Duoneb) 3 ml Q6H RESP THERAPY PRN HHN SHORTNESS OF BREATH; Start 02/17/19 at 22:30 Lisinopril (Zestril) 2.5 mg DAILY PO Last administered on 02/18/19at 13:07; Admin Dose 2.5 MG; Start 02/18/19 at 09:30 Nitroglycerin (Nitroglycerin (Sl Tab) 0.4 Mg) 1 tab Q5M PRN SL ANGINA; Start 02/19/19 at 00:00 Morphine Sulfate (morphine) 3 mg Q1H PRN IV CHEST PAIN Last administered on 02/20/19at 05:12; Admin Dose 3 MG; Start 02/19/19 at 01:30 Insulin Aspart (Novolog Insulin Pen) 15 unit WITH MEALS SC Last administered on 02/19/19at 16:12; Admin Dose 15 UNIT; Start 02/19/19 at 11:30 Insulin Glargine (Lantus) 55 units DAILY@2000 SC ; Start 02/19/19 at 20:00; Status Hold Diclofenac Sodium (Voltaren 1% Gel) 2 gm QID PRN TP PAIN Last administered on 02/19/19at 20:47; Admin Dose 2 GM; Start 02/19/19 at 18:30 Allergies: Coded Allergies: No Known Allergy (Unverified , 02/17/19) Past Surgical History Past Surgical Hx: no surgical history Social History Smoking Status: Never smoker Exam/Review of Systems Exam Vitals Vital Signs Date Temp Pulse Resp B/P (MAP) Pulse Ox O2 O2 Flow FiO2 Time Delivery Rate 02/20/19 98.5 107 15 104/66 98 BIPAP 08:00 (79) 02/20/19 30 07:54 02/19/19 5.0 18:00 Intake and Output 02/19/19 02/19/19 02/20/19 1515:00 23:00 07:00 IntakeIntake Total 400 ml 0 ml OutputOutput Total 320 ml 290 ml 210 ml BalanceBalance 80 ml -290 ml -210 ml Exam H ENT exam; supple neck, positive JVD. No lymphadenopathy. Midline trachea. No thyromegaly. On BiPAP. Pupils are small bilaterally. Chest exam; diminished breath sounds bilaterally. S1-S2 audible, no murmurs. Tachycardic. Regular rhythm. Abdomen exam; soft, nontender. No organomegaly. Bowel sounds audible. Extremity exam; no edema or clubbing. Pulses 1+. 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 Results Result Diagram: 02/20/19 0513 02/20/19 0513 Results 24hrs Laboratory Tests Test 02/19/19 12:33 02/19/19 16:09 02/19/19 19:38 02/20/19 05:13 Bedside Glucose 150 183 159 White Blood Count 14.6 H Red Blood Count 3.15 L Hemoglobin 9.5 L Hematocrit 30.1 L Mean Corpuscular 95.6 Volume Mean Corpuscular 30.2 Hemoglobin Mean Corpuscular 31.6 L Hemoglobin Concent Red Cell 13.4 Distribution Width Platelet Count 195 Mean Platelet Volume 12.9 H Immature 0.400 Granulocytes % Neutrophils % 76.2 Lymphocytes % 15.6 Monocytes % 7.4 Eosinophils % 0.1 Basophils % 0.3 Nucleated Red Blood 0.0 Cells % Immature 0.060 H Granulocytes # Neutrophils # 11.1 H Lymphocytes # 2.3 Monocytes # 1.1 H Eosinophils # 0.0 Basophils # 0.0 Nucleated Red Blood 0.0 Cells # Prothrombin Time 15.2 H Prothrombin Time 1.2 Ratio INR International 1.19 Normalized Ratio Activated 39.3 H Partial Thromboplast Time Sodium Level 137 Potassium Level 4.0 Chloride Level 103 Carbon Dioxide Level 25 Anion Gap 9 Blood Urea Nitrogen 36 H Creatinine 1.12 H Est Glomerular 48 L Filtrat Rate mL/min Glucose Level 174 Calcium Level 8.2 L Test 02/20/19 08:11 Bedside Glucose 163 Medications Medication Current Medications Escitalopram Oxalate (Lexapro) 10 mg DAILY PO Last administered on 02/20/19 09:29; Admin Dose 10 MG; Start 02/17/19 at 13:00 Montelukast Sodium (Singulair) 10 mg QHS PO Last administered on 02/19/19at 20:47; Admin Dose 10 MG; Start 02/17/19 at 21:00 Acetaminophen (Tylenol Tab) 1,000 mg Q4 PRN PO pain Last administered on 02/18/19 19:28; Admin Dose 1,000 MG; Start 02/17/19 at 13:00 Ondansetron HCl (Zofran Inj) 4 mg Q4 PRN IV nausea; Start 02/17/19 at 13:00 Zolpidem Tartrate (Ambien) 5 mg HS MAY REPEAT X 1 PRN PO INSOMNIA Last administered on 02/19/19at 20:47; Admin Dose 5 MG; Start 02/17/19 at 13:00 Diagnostic Test (Pha) (Accu-Chek) 1 ea 02 XX Last administered on 02/19/19at 02:06; Admin Dose 1 EA; Start 02/18/19 at 02:00 Insulin Aspart (Novolog Insulin Pen) NOVOLOG *MODERATE* ALGORITHM WITH MEALS BEDTIME SC Last administered on 02/20/19 08:14; Admin Dose 2 UNIT; Start 02/17/19 at 21:00 Miscellaneous Information 1 ea NOTE XX ; Start 02/17/19 at 19:00 Glucose (Glutose) 15 gm Q15M PRN PO DECREASED GLUCOSE; Start 02/17/19 at 19:00 Glucose (Glutose) 22.5 gm Q15M PRN PO DECREASED GLUCOSE; Start 02/17/19 at 19:00 Dextrose (D50w Syringe) 25 ml Q15M PRN IV DECREASED GLUCOSE; Start 02/17/19 at 19:00 Dextrose (D50w Syringe) 50 ml Q15M PRN IV DECREASED GLUCOSE; Start 02/17/19 at 19:00 Glucagon (Glucagen) 1 mg Q15M PRN IM DECREASED GLUCOSE; Start 02/17/19 at 19:00 Glucose (Glutose) 15 gm Q15M PRN BUCCAL DECREASED GLUCOSE; Start 02/17/19 at 19:00 Atorvastatin Calcium (Lipitor) 80 mg QHS PO Last administered on 02/19/19at 20:47; Admin Dose 80 MG; Start 02/18/19 at 21:00 Aspirin (Aspirin) 81 mg DAILY PO Last administered on 02/20/19 09:29; Admin Dose 81 MG; Start 02/18/19 at 09:00 Metoprolol Succinate (Toprol Xl) 12.5 mg DAILY PO Last administered on 02/20/19 09:29; Admin Dose 12.5 MG; Start 02/18/19 at 09:00 Albuterol/ Ipratropium (Duoneb) 3 ml Q6H RESP THERAPY HHN Last administered on 02/20/19 07:53; Admin Dose 3 ML; Start 02/18/19 at 02:00 Albuterol/ Ipratropium (Duoneb) 3 ml Q6H RESP THERAPY PRN HHN SHORTNESS OF BREATH; Start 02/17/19 at 22:30 Lisinopril (Zestril) 2.5 mg DAILY PO Last administered on 02/18/19at 13:07; Admin Dose 2.5 MG; Start 02/18/19 at 09:30 Nitroglycerin (Nitroglycerin (Sl Tab) 0.4 Mg) 1 tab Q5M PRN SL ANGINA; Start 02/19/19 at 00:00 Morphine Sulfate (morphine) 3 mg Q1H PRN IV CHEST PAIN Last administered on 02/20/19at 05:12; Admin Dose 3 MG; Start 02/19/19 at 01:30 Insulin Aspart (Novolog Insulin Pen) 15 unit WITH MEALS SC Last administered on 02/19/19at 16:12; Admin Dose 15 UNIT; Start 02/19/19 at 11:30 Insulin Glargine (Lantus) 55 units DAILY@2000 SC ; Start 02/19/19 at 20:00; Status Hold Diclofenac Sodium (Voltaren 1% Gel) 2 gm QID PRN TP PAIN Last administered on 02/19/19at 20:47; Admin Dose 2 GM; Start 02/19/19 at 18:30 ONELIA MONTILLA February 20, 2019 09:44
[2019-02-20] MEDS: DICLOFENAC SODIUM 1% GEL 100 GM TUBE TP PRN (12:05)
[2019-02-20] MEDS ORDERED: HEPARIN 1000 UNITS/ML 10 ML INJ ONE (14:51)
[2019-02-20] MEDS ORDERED: LIDOCAINE 1% (MDV) 20 ML INJ ONE (14:51)
[2019-02-20] MEDS ORDERED: VERAPAMIL 5 MG INJ ONE (14:51)
[2019-02-20] MEDS ORDERED: IODIXANOL LOCM 100 ML BTL ONE (14:51)
[2019-02-20] MEDS ORDERED: NITROGLYCERIN (IC) 100 MCG/ML INJ ONE (14:51)
[2019-02-20] MEDS ORDERED: FENTAnyl 50 MCG/ML VIAL ONE (15:09)
[2019-02-20] MEDS ORDERED: MIDAZOLAM 1 MG/ML 2 ML INJ ONE (15:10)
[2019-02-20] MEDS ORDERED: SOD CHLORIDE 0.9% 1,000 ML IV SCH (15:47)
--- NOTE | 2019-02-20 16:00 | OPR ---
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 She received conscious sedation with versed and fentanyl. Access obtained in the right radial artery, 6F sheath placed. Verapamil, heparin, and nitro given through the sheath. A [place] catheter was advanced over a J wire, engaged the LM and then RCA, angiography performed w injection of contrast. The [place] catheter crossed the aortic valve, pressures measured and a pullback pressure measured. It was felt appropriate to assess the prox LAD better with iFR. More heparin given, ACT checked, and a FL 3.5 guide advanced over wire, engaged the LM. Wire equalized in the LM, and then advanced to the mid LAD, and iFR measured. Angiography performed after removal of the wire demonstrating stable vessel. Findings: LM - short, normal LAD - long prox-mid 70% lesion with iFR of 0.66. Moderate diffuse distal disease. Diagonal vessel with moderate diffuse disease LCX - Ostial 90% lesion, OM1 with 99% mid lesion and JOHNATH[place] 1 flow past the lesion RCA - Totally occluded in its proximal portion. PDA fills by left to right collaterals. LVEDP - 25 Plan: CABG. Dr. Subramanian contacted. RUDY LONDON February 20, 2019 16:00
--- NOTE | 2019-02-20 16:03 | CONS ---
Assessment/Plan Cardiology NYHA: IV Heart Failure Type: Acute Heart Failure Type: Both Assessment/Plan Hospital Course (Demo Recall) 68 yo with NSTEMI and acute heart failure. Cath shows 3 vessel coronary disease Impression: NSTEMI with severe 3 vessel coronary disease Acute diastolic and systolic heart failure, improved with diuresis Diabetes uncontrolled Recommendations: CABG recommended. I have contacted Dr. Subramanian Continue asa, high intensity statin, bb, arb, and uptitrate arb and bb as able. 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 Exam/Review of Systems Vital Signs Vitals Vital Signs Date Temp Pulse Resp B/P (MAP) Pulse Ox O2 O2 Flow FiO2 Time Delivery Rate 02/20/19 103 17 105/62 99 Nasal 3.0 14:00 (76) Cannula 02/20/19 30 13:53 02/20/19 98.6 12:00 Intake and Output 02/19/19 02/19/19 02/20/19 1515:00 23:00 07:00 IntakeIntake Total 400 ml 0 ml OutputOutput Total 320 ml 290 ml 210 ml BalanceBalance 80 ml -290 ml -210 ml Exam Constitutional: alert, well developed Cardiovascular: regular rate and rhythm, nl pulses Skin: nl turgor Labs Result Diagram: 02/20/19 0513 02/20/19 0513 Results 24hrs Laboratory Tests Test 02/19/19 16:09 02/19/19 19:38 02/20/19 05:13 02/20/19 08:11 Bedside Glucose 183 159 163 White Blood Count 14.6 H Red Blood Count 3.15 L Hemoglobin 9.5 L Hematocrit 30.1 L Mean Corpuscular 95.6 Volume Mean Corpuscular 30.2 Hemoglobin Mean Corpuscular 31.6 L Hemoglobin Concent Red Cell 13.4 Distribution Width Platelet Count 195 Mean Platelet Volume 12.9 H Immature 0.400 Granulocytes % Neutrophils % 76.2 Lymphocytes % 15.6 Monocytes % 7.4 Eosinophils % 0.1 Basophils % 0.3 Nucleated Red Blood 0.0 Cells % Immature 0.060 H Granulocytes # Neutrophils # 11.1 H Lymphocytes # 2.3 Monocytes # 1.1 H Eosinophils # 0.0 Basophils # 0.0 Nucleated Red Blood 0.0 Cells # Prothrombin Time 15.2 H Prothrombin Time 1.2 Ratio INR International 1.19 Normalized Ratio Activated 39.3 H Partial Thromboplast Time Sodium Level 137 Potassium Level 4.0 Chloride Level 103 Carbon Dioxide Level 25 Anion Gap 9 Blood Urea Nitrogen 36 H Creatinine 1.12 H Est Glomerular 48 L Filtrat Rate mL/min Glucose Level 174 Calcium Level 8.2 L Test 02/20/19 11:01 Bedside Glucose 143 Medications Medications Current Medications Escitalopram Oxalate (Lexapro) 10 mg DAILY PO Last administered on 02/20/19 09:29; Admin Dose 10 MG; Start 02/17/19 at 13:00 Montelukast Sodium (Singulair) 10 mg QHS PO Last administered on 02/19/19 20:47; Admin Dose 10 MG; Start 02/17/19 at 21:00 Acetaminophen (Tylenol Tab) 1,000 mg Q4 PRN PO pain Last administered on 02/18/19 19:28; Admin Dose 1,000 MG; Start 02/17/19 at 13:00 Ondansetron HCl (Zofran Inj) 4 mg Q4 PRN IV nausea; Start 02/17/19 at 13:00 Zolpidem Tartrate (Ambien) 5 mg HS MAY REPEAT X 1 PRN PO INSOMNIA Last administered on 02/19/19 20:47; Admin Dose 5 MG; Start 02/17/19 at 13:00 Diagnostic Test (Pha) (Accu-Chek) 1 ea 02 XX Last administered on 02/19/19at 02:06; Admin Dose 1 EA; Start 02/18/19 at 02:00 Insulin Aspart (Novolog Insulin Pen) NOVOLOG *MODERATE* ALGORITHM WITH MEALS BEDTIME SC Last administered on 02/20/19 11:04; Admin Dose 2 UNIT; Start 02/17/19 at 21:00 Miscellaneous Information 1 ea NOTE XX ; Start 02/17/19 at 19:00 Glucose (Glutose) 15 gm Q15M PRN PO DECREASED GLUCOSE; Start 02/17/19 at 19:00 Glucose (Glutose) 22.5 gm Q15M PRN PO DECREASED GLUCOSE; Start 02/17/19 at 19:00 Dextrose (D50w Syringe) 25 ml Q15M PRN IV DECREASED GLUCOSE; Start 02/17/19 at 19:00 Dextrose (D50w Syringe) 50 ml Q15M PRN IV DECREASED GLUCOSE; Start 02/17/19 at 19:00 Glucagon (Glucagen) 1 mg Q15M PRN IM DECREASED GLUCOSE; Start 02/17/19 at 19:00 Glucose (Glutose) 15 gm Q15M PRN BUCCAL DECREASED GLUCOSE; Start 02/17/19 at 19:00 Atorvastatin Calcium (Lipitor) 80 mg QHS PO Last administered on 02/19/19 20:47; Admin Dose 80 MG; Start 02/18/19 at 21:00 Aspirin (Aspirin) 81 mg DAILY PO Last administered on 02/20/19 09:29; Admin Dose 81 MG; Start 02/18/19 at 09:00 Metoprolol Succinate (Toprol Xl) 12.5 mg DAILY PO Last administered on 02/20/19 09:29; Admin Dose 12.5 MG; Start 02/18/19 at 09:00 Albuterol/ Ipratropium (Duoneb) 3 ml Q6H RESP THERAPY HHN Last administered on 02/20/19 13:53; Admin Dose 3 ML; Start 02/18/19 at 02:00 Albuterol/ Ipratropium (Duoneb) 3 ml Q6H RESP THERAPY PRN HHN SHORTNESS OF BR EATH; Start 02/17/19 at 22:30 Lisinopril (Zestril) 2.5 mg DAILY PO Last administered on 02/18/19 13:07; Admin Dose 2.5 MG; Start 02/18/19 at 09:30 Nitroglycerin (Nitroglycerin (Sl Tab) 0.4 Mg) 1 tab Q5M PRN SL ANGINA; Start 02/19/19 at 00:00 Morphine Sulfate (morphine) 3 mg Q1H PRN IV CHEST PAIN Last administered on 02/20/19 05:12; Admin Dose 3 MG; Start 02/19/19 at 01:30 Insulin Aspart (Novolog Insulin Pen) 15 unit WITH MEALS SC Last administered on 02/19/19at 16:12; Admin Dose 15 UNIT; Start 02/19/19 at 11:30 Insulin Glargine (Lantus) 55 units DAILY@2000 SC ; Start 02/19/19 at 20:00; Status Hold Diclofenac Sodium (Voltaren 1% Gel) 2 gm QID PRN TP PAIN Last administered on 02/20/19at 12:05; Admin Dose 2 GM; Start 02/19/19 at 18:30 Miscellaneous Information (* Miscellaneous Pharmacy Order) HOLD all METFORMIN ... ONCE ONCE XX ; Start 02/20/19 at 16:00; Stop 02/20/19 at 16:01; Status UNV Sodium Chloride 1,000 ml @ 75 mls/hr [id number] IV ; Start 02/20/19 at 15:47; Stop 02/20/19 at 20:46; Status UNV RUDY LONDON February 20, 2019 16:03
--- NOTE | 2019-02-20 18:26 | CONS ---
Assessment/Plan Assessment/Plan Assessment/Plan (Daily) 68 year old female with ischemic cardiomyopathy and 3V CAD. I explained to the patient and her daughter and nephew the risks, benefits, and alternatives of surgery. The risks are but not limited to bleeding, infection, stroke, VT, renal and respiratory failure and . STS risks of mortality is about 3-5%. They want to discuss further. If they agree will plan on or Tuesday. Will order carotid duplex Consultation Date/Type/Reason Admit Date/Time February 17, 2019 at 13:03 Date of Consultation: February 20, [address] SURGERY Reason for Consultation EVAL FOR CABG Requesting Provider: RUDY LONDON Date/Time of Note DATE: 02/20/19 TIME: 18:20 Hx of Present Illness 68 year old female with DM, HT, admitted with CHF symptoms. Echo showed EF of 35%. Cath today shows occluded RCA, subtotal large ramus and 70-80% proximal LAD stenosis. She also has some renal insufficiency. We are asked to evaluate for CABG Constitutional: no complaints, improved Eyes: no complaints ENT: no complaints Respiratory: cough, shortness of breath Cardiovascular: no complaints Gastrointestinal: no complaints Genitourinary: no complaints Musculoskeletal: no complaints Skin: no complaints Neurologic: no complaints Endocrine: no complaints Lymphatic: no complaints Psychological: no complaints, nl mood/affect Immunologic: no complaints Past Medical History Medical History: congestive heart failure, coronary artery disease, diabetes, high cholesterol, hypertension Home Meds Reported Medications Escitalopram Oxalate* (Lexapro*) 10 Mg Tablet, 10 MG PO DAILY, #30 TAB 02/17/19 Omeprazole* (Omeprazole*) 40 Mg Capsule.dr, 40 MG PO DAILY, #30 CAP 02/17/19 Montelukast Sodium* (Montelukast Sodium*) 10 Mg Tablet, 10 MG PO QHS, #30 TAB 02/17/19 Atorvastatin Calcium* (Atorvastatin Calcium*) 20 Mg Tablet, 20 MG PO QHS, #30 TAB 02/17/19 Meloxicam* (Meloxicam*) 7.5 Mg Tablet, 7.5 MG PO DAILY, #30 TAB 02/17/19 Insulin Lispro (Humalog Kwikpen U-100) 100 Unit/1 Ml Insuln.pen, 12 UNIT SQ AC A, EA 02/17/19 Insulin Glargine* (Lantus*) 100 Unit/Ml Soln, 50 UNIT SC QHS, #1 VIAL 02/17/19 Losartan Potassium* (Losartan Potassium*) 100 Mg Tablet, 100 MG PO DAILY, TAB 02/17/19 Aspirin (Low Dose Aspirin) 81 Mg Tablet.dr, 81 MG PO DAILY, #30 TAB 02/17/19 Metformin Hcl* (Metformin Hcl*) 850 Mg Tablet, 850 MG PO WITH BREAKFAST DINNE, #60 TAB 02/17/19 Discontinued Reported Medications Amlodipine Besylate* (Norvasc*) 5 Mg Tablet, 5 MG PO DAILY, TAB 02/17/19 Discontinued Scripts Ondansetron (Ondansetron Odt) 4 Mg Tab.rapdis, 4 MG PO Q6H PRN for NAUSEA AND/OR VOMITING, #30 TAB Prov:DEE PAVON MD 04/07/17 Hydrocodone/Acetaminophen ([place] 10-325 Tablet) 1 Each Tablet, 1 TAB PO Q6H PRN for PAIN, #7 TAB Prov:DEE PAVON MD 04/07/17 Medications Current Medications Escitalopram Oxalate (Lexapro) 10 mg DAILY PO Last administered on 02/20/19 09:29; Admin Dose 10 MG; Start 02/17/19 at 13:00 Montelukast Sodium (Singulair) 10 mg QHS PO Last administered on 02/19/19at 20:47; Admin Dose 10 MG; Start 02/17/19 at 21:00 Acetaminophen (Tylenol Tab) 1,000 mg Q4 PRN PO pain Last administered on 02/18/19 19:28; Admin Dose 1,000 MG; Start 02/17/19 at 13:00 Ondansetron HCl (Zofran Inj) 4 mg Q4 PRN IV nausea; Start 02/17/19 at 13:00 Zolpidem Tartrate (Ambien) 5 mg HS MAY REPEAT X 1 PRN PO INSOMNIA Last administered on 02/19/19at 20:47; Admin Dose 5 MG; Start 02/17/19 at 13:00 Diagnostic Test (Pha) (Accu-Chek) 1 ea 02 XX Last administered on 02/19/19at 02:06; Admin Dose 1 EA; Start 02/18/19 at 02:00 Insulin Aspart (Novolog Insulin Pen) NOVOLOG *MODERATE* ALGORITHM WITH MEALS BE DTIME SC Last administered on 02/20/19at 17:30; Admin Dose 2 UNIT; Start 02/17/19 at 21:00 Miscellaneous Information 1 ea NOTE XX ; Start 02/17/19 at 19:00 Glucose (Glutose) 15 gm Q15M PRN PO DECREASED GLUCOSE; Start 02/17/19 at 19:00 Glucose (Glutose) 22.5 gm Q15M PRN PO DECREASED GLUCOSE; Start 02/17/19 at 19:00 Dextrose (D50w Syringe) 25 ml Q15M PRN IV DECREASED GLUCOSE; Start 02/17/19 at 19:00 Dextrose (D50w Syringe) 50 ml Q15M PRN IV DECREASED GLUCOSE; Start 02/17/19 at 19:00 Glucagon (Glucagen) 1 mg Q15M PRN IM DECREASED GLUCOSE; Start 02/17/19 at 19:00 Glucose (Glutose) 15 gm Q15M PRN BUCCAL DECREASED GLUCOSE; Start 02/17/19 at 19:00 Atorvastatin Calcium (Lipitor) 80 mg QHS PO Last administered on 02/19/19at 20:47; Admin Dose 80 MG; Start 02/18/19 at 21:00 Aspirin (Aspirin) 81 mg DAILY PO Last administered on 02/20/19at 09:29; Admin Dose 81 MG; Start 02/18/19 at 09:00 Metoprolol Succinate (Toprol Xl) 12.5 mg DAILY PO Last administered on 02/20/19at 09:29; Admin Dose 12.5 MG; Start 02/18/19 at 09:00 Albuterol/ Ipratropium (Duoneb) 3 ml Q6H RESP THERAPY HHN Last administered on 02/20/19at 13:53; Admin Dose 3 ML; Start 02/18/19 at 02:00 Albuterol/ Ipratropium (Duoneb) 3 ml Q6H RESP THERAPY PRN HHN SHORTNESS OF BREATH; Start 02/17/19 at 22:30 Lisinopril (Zestril) 2.5 mg DAILY PO Last administered on 02/18/19at 13:07; Admin Dose 2.5 MG; Start 02/18/19 at 09:30 Nitroglycerin (Nitroglycerin (Sl Tab) 0.4 Mg) 1 tab Q5M PRN SL ANGINA; Start 02/19/19 at 00:00 Morphine Sulfate (morphine) 3 mg Q1H PRN IV CHEST PAIN Last administered on 02/20/19at 05:12; Admin Dose 3 MG; Start 02/19/19 at 01:30 Insulin Aspart (Novolog Insulin Pen) 15 unit WITH MEALS SC Last administered on 02/20/19at 17:29; Admin Dose 15 UNIT; Start 02/19/19 at 11:30 Insulin Glargine (Lantus) 55 units DAILY@2000 SC ; Start 02/19/19 at 20:00; Status Hold Diclofenac Sodium (Voltaren 1% Gel) 2 gm QID PRN TP PAIN Last administered on 02/20/19at 12:05; Admin Dose 2 GM; Start 02/19/19 at 18:30 Sodium Chloride 1,000 ml @ 75 mls/hr [id number] IV Last administered on 02/20/19at 16:26; Admin Dose 75 MLS/HR; Start 02/20/19 at 15:47; Stop 02/20/19 at 20:46 Allergies: Coded Allergies: No Known Allergy (Unverified , 02/17/19) Past Surgical History Past Surgical Hx: no surgical history, other (cataracts) Family History Significant Family History: no pertinent family hx Social History Alcohol Use: none Smoking Status: Never smoker Exam/Review of Systems Exam Vitals Vital Signs Date Temp Pulse Resp B/P (MAP) Pulse Ox O2 O2 Flow FiO2 Time Delivery Rate 02/20/19 104 17 108/67 92 Nasal 3.0 17:00 (81) Cannula 02/20/19 97.9 16:30 02/20/19 30 13:53 Intake and Output 02/19/19 02/19/19 02/20/19 1515:00 23:00 07:00 IntakeIntake Total 400 ml 0 ml OutputOutput Total 320 ml 290 ml 210 ml BalanceBalance 80 ml -290 ml -210 ml Constitutional: alert, oriented, obese Psych: no complaints, nl mood/affect Head: normocephalic, atraumatic Eyes: nl conjunctiva, EOMI, nl lids, nl sclera, PERRL ENMT: nl external ears & nose, nl lips & teeth, nl nasal mucosa & septum Neck: supple, non-tender Respiratory: clear to auscultation, diminished breath sounds Cardiovascular: regular rate and rhythm, nl pulses Gastrointestinal: soft, nl liver, spleen, non-tender Musculoskeletal: nl extremities to inspection, nl gait and stance Extremities: normal pulses 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, nl mental status, nl speech, nl strength Skin: nl turgor; No rash or lesions Lymph: nl lymph nodes Results Result Diagram: 02/20/19 0513 02/20/19 0513 Results 24hrs Laboratory Tests Test 02/19/19 19:38 02/20/19 05:13 02/20/19 08:11 02/20/19 11:01 Bedside Glucose 159 163 143 White Blood Count 14.6 H Red Blood Count 3.15 L Hemoglobin 9.5 L Hematocrit 30.1 L Mean Corpuscular 95.6 Volume Mean Corpuscular 30.2 Hemoglobin Mean Corpuscular 31.6 L Hemoglobin Concent Red Cell 13.4 Distribution Width Platelet Count 195 Mean Platelet Volume 12.9 H Immature 0.400 Granulocytes % Neutrophils % 76.2 Lymphocytes % 15.6 Monocytes % 7.4 Eosinophils % 0.1 Basophils % 0.3 Nucleated Red Blood 0.0 Cells % Immature 0.060 H Granulocytes # Neutrophils # 11.1 H Lymphocytes # 2.3 Monocytes # 1.1 H Eosinophils # 0.0 Basophils # 0.0 Nucleated Red Blood 0.0 Cells # Prothrombin Time 15.2 H Prothrombin Time 1.2 Ratio INR International 1.19 Normalized Ratio Activated 39.3 H Partial Thromboplast Time Sodium Level 137 Potassium Level 4.0 Chloride Level 103 Carbon Dioxide Level 25 Anion Gap 9 Blood Urea Nitrogen 36 H Creatinine 1.12 H Est Glomerular 48 L Filtrat Rate mL/min Glucose Level 174 Calcium Level 8.2 L Test 02/20/19 17:25 Bedside Glucose 177 Medications Medication Current Medications Escitalopram Oxalate (Lexapro) 10 mg DAILY PO Last administered on 02/20/19at 09:29; Admin Dose 10 MG; Start 02/17/19 at 13:00 Montelukast Sodium (Singulair) 10 mg QHS PO Last administered on 02/19/19at 20:47; Admin Dose 10 MG; Start 02/17/19 at 21:00 Acetaminophen (Tylenol Tab) 1,000 mg Q4 PRN PO pain Last administered on 02/18/19at 19:28; Admin Dose 1,000 MG; Start 02/17/19 at 13:00 Ondansetron HCl (Zofran Inj) 4 mg Q4 PRN IV nausea; Start 02/17/19 at 13:00 Zolpidem Tartrate (Ambien) 5 mg HS MAY REPEAT X 1 PRN PO INSOMNIA Last administered on 02/19/19 20:47; Admin Dose 5 MG; Start 02/17/19 at 13:00 Diagnostic Test (Pha) (Accu-Chek) 1 ea 02 XX Last administered on 02/19/19 02:06; Admin Dose 1 EA; Start 02/18/19 at 02:00 Insulin Aspart (Novolog Insulin Pen) NOVOLOG *MODERATE* ALGORITHM WITH MEALS BEDTIME SC Last administered on 02/20/19 17:30; Admin Dose 2 UNIT; Start 02/17/19 at 21:00 Miscellaneous Information 1 ea NOTE XX ; Start 02/17/19 at 19:00 Glucose (Glutose) 15 gm Q15M PRN PO DECREASED GLUCOSE; Start 02/17/19 at 19:00 Glucose (Glutose) 22.5 gm Q15M PRN PO DECREASED GLUCOSE; Start 02/17/19 at 19:00 Dextrose (D50w Syringe) 25 ml Q15M PRN IV DECREASED GLUCOSE; Start 02/17/19 at 19:00 Dextrose (D50w Syringe) 50 ml Q15M PRN IV DECREASED GLUCOSE; Start 02/17/19 at 19:00 Glucagon (Glucagen) 1 mg Q15M PRN IM DECREASED GLUCOSE; Start 02/17/19 at 19:00 Glucose (Glutose) 15 gm Q15M PRN BUCCAL DECREASED GLUCOSE; Start 02/17/19 at 19:00 Atorvastatin Calcium (Lipitor) 80 mg QHS PO Last administered on 02/19/19 20:47; Admin Dose 80 MG; Start 02/18/19 at 21:00 Aspirin (Aspirin) 81 mg DAILY PO Last administered on 02/20/19 09:29; Admin Dose 81 MG; Start 02/18/19 at 09:00 Metoprolol Succinate (Toprol Xl) 12.5 mg DAILY PO Last administered on 02/20/19 09:29; Admin Dose 12.5 MG; Start 02/18/19 at 09:00 Albuterol/ Ipratropium (Duoneb) 3 ml Q6H RESP THERAPY HHN Last administered on 5/28/19at 13:53; Admin Dose 3 ML; Start 02/18/19 at 02:00 Albuterol/ Ipratropium (Duoneb) 3 ml Q6H RESP THERAPY PRN HHN SHORTNESS OF BREATH; Start 02/17/19 at 22:30 Lisinopril (Zestril) 2.5 mg DAILY PO Last administered on 02/18/19at 13:07; Admin Dose 2.5 MG; Start 02/18/19 at 09:30 Nitroglycerin (Nitroglycerin (Sl Tab) 0.4 Mg) 1 tab Q5M PRN SL ANGINA; Start 02/19/19 at 00:00 Morphine Sulfate (morphine) 3 mg Q1H PRN IV CHEST PAIN Last administered on 02/20/19at 05:12; Admin Dose 3 MG; Start 02/19/19 at 01:30 Insulin Aspart (Novolog Insulin Pen) 15 unit WITH MEALS SC Last administered on 02/20/19at 17:29; Admin Dose 15 UNIT; Start 02/19/19 at 11:30 Insulin Glargine (Lantus) 55 units DAILY@2000 SC ; Start 02/19/19 at 20:00; Status Hold Diclofenac Sodium (Voltaren 1% Gel) 2 gm QID PRN TP PAIN Last administered on 02/20/19at 12:05; Admin Dose 2 GM; Start 02/19/19 at 18:30 Sodium Chloride 1,000 ml @ 75 mls/hr [id number] IV Last administered on 02/20/19at 16:26; Admin Dose 75 MLS/HR; Start 02/20/19 at 15:47; Stop 02/20/19 at 20:46 SHAY FRAGA MD February 20, 2019 18:26
[2019-02-20] MEDS: MONTELUKAST 10 MG TAB PO SCH (21:05)
[2019-02-20] MEDS: ATORVASTATIN 80 MG TAB PO SCH (21:06)
[2019-02-20] MEDS: ZOLPIDEM 5 MG TAB PO PRN (22:52)
[2019-02-21] VITALS (25 sets, daily range): BP systolic 85–111; BP diastolic 51–76; PULSE 94–122; RESP 17–29
[2019-02-21] MEDS: morphine 4 MG/ML VIAL IV PRN ×2 (01:16→22:01)
[2019-02-21] MEDS: ALBUTEROL/IPRATROPIUM (NEB) 3 ML AMP HHN SCH ×4 (02:00→20:51)
[2019-02-21] MEDS: ACCU-CHEK XX SCH (02:19)
[2019-02-21] MEDS: INSULIN ASPART [NOVOLOG] 3 ML PEN SC SCH ×7 (07:35→20:24)
--- NOTE | 2019-02-21 07:41 | PN ---
Date/Time of Note Date/Time of Note DATE: 02/21/19 TIME: 07:40 Assessment/Plan Lines/Catheters IV Catheter Type (from Nrsg): Mid Line Beltran in Place (from Nrsg): Yes Assessment/Plan Assessment/Plan patient and family have agreed to surgery. creat 1.17 today. will schedule for tuesday. Exam/Review of Systems Vital Signs Vitals Vital Signs Date Temp Pulse Resp B/P (MAP) Pulse Ox O2 O2 Flow FiO2 Time Delivery Rate 02/21/19 104 19 96 Nasal 4.0 07:37 Cannula 02/21/19 93/64 (74) 06:00 02/21/19 98.3 04:00 02/20/19 30 21:15 Intake and Output 02/20/19 02/20/19 02/21/19 1515:00 23:00 07:00 IntakeIntake Total 50 ml 582.5 ml 375 ml OutputOutput Total 205 ml 320 ml 208 ml BalanceBalance -155 ml 262.5 ml 167 ml Results Result Diagram: 02/21/19 0504 02/21/19 0504 SHAY FRAGA MD February 21, 2019 07:41
[2019-02-21] MEDS: DICLOFENAC SODIUM 1% GEL 100 GM TUBE TP PRN (08:21)
[2019-02-21] MEDS: ESCITALOPRAM 10 MG TAB PO SCH (08:46)
[2019-02-21] MEDS: ASPIRIN 81 MG TAB PO SCH (08:46)
[2019-02-21] MEDS: LISINOPRIL 5 MG TAB PO SCH (08:47)
[2019-02-21] MEDS: METOPROLOL (XL) 25 MG TAB PO SCH (08:47)
--- NOTE | 2019-02-21 09:02 | CONS ---
Consult Date/Type/Reason Admit Date/Time February 17, 2019 at 13:03 Initial Consult Date 02/20/19 Type of Consult Pulmonary Requesting Provider: RUDY LONDON Date/Time of Note DATE: 02/21/19 TIME: 08:59 Subjective Patient awake alert this morning less respiratory distress declined BiPAP overnight. Cardiac catheterization findings noted multivessel disease. Objective Vital Signs Date Temp Pulse Resp B/P (MAP) Pulse Ox O2 O2 Flow FiO2 Time Delivery Rate 02/21/19 104 19 96 Nasal 4.0 07:37 Cannula 02/21/19 93/64 (74) 06:00 02/21/19 98.3 04:00 02/20/19 30 21:15 Intake and Output 02/20/19 02/20/19 02/21/19 1515:00 23:00 07:00 IntakeIntake Total 50 ml 582.5 ml 375 ml OutputOutput Total 205 ml 320 ml 208 ml BalanceBalance -155 ml 262.5 ml 167 ml Exam GENERAL: Elderly lady comfortable at rest no acute distress. VITAL SIGNS: per chart NECK: Supple. No JVD or lymphadenopathy. CARDIAC EXAM: S1, S2. 2/6 systolic ejection murmur CHEST: Diminished air entry bilaterally with rales ABDOMEN: Soft, nontender. No guarding or rebound. EXTREMITIES: No cyanosis, clubbing edema +1 NEUROLOGIC: Generalized weakness. No focal deficits. Vent Setting Fraction of Inspired Oxygen pe: 30 Results/Medications Result Diagram: 02/21/19 0504 02/21/19 0504 Results 24 hrs Laboratory Tests Test 02/20/19 11:01 02/20/19 17:25 02/20/19 20:46 02/21/19 02:17 Bedside Glucose 143 177 142 165 Test 02/21/19 05:04 02/21/19 08:19 White Blood Count 14.2 H Red Blood Count 2.98 L Hemoglobin 9.1 L Hematocrit 28.4 L Mean Corpuscular 95.3 Volume Mean Corpuscular 30.5 Hemoglobin Mean Corpuscular 32.0 Hemoglobin Concent Red Cell 13.1 Distribution Width Platelet Count 256 # Mean Platelet Volume 11.9 H Immature 0.600 H Granulocytes % Neutrophils % 78.6 H Lymphocytes % 13.9 L Monocytes % 6.5 Eosinophils % 0.3 Basophils % 0.1 Nucleated Red Blood 0.0 Cells % Immature 0.090 H Granulocytes # Neutrophils # 11.2 H Lymphocytes # 2.0 Monocytes # 0.9 Eosinophils # 0.0 Basophils # 0.0 Nucleated Red Blood 0.0 Cells # Sodium Level 138 Potassium Level 4.1 Chloride Level 104 Carbon Dioxide Level 28 Anion Gap 6 Blood Urea Nitrogen 42 H Creatinine 1.17 H Est Glomerular 46 L Filtrat Rate mL/min Glucose Level 141 Calcium Level 8.3 L Phosphorus Level 4.5 Magnesium Level 2.7 H Total Bilirubin 0.5 Direct Bilirubin 0.00 Indirect Bilirubin 0.5 Aspartate Amino 41 Transf (AST/SGOT) Alanine 25 Aminotransferase (AL T/SGPT) Alkaline Phosphatase 97 Total Protein 6.3 Albumin 3.2 L Globulin 3.10 Albumin/Globulin 1.03 Ratio Bedside Glucose 127 Medications Current Medications Escitalopram Oxalate (Lexapro) 10 mg DAILY PO Last administered on 02/21/19 08:46; Admin Dose 10 MG; Start 02/17/19 at 13:00 Montelukast Sodium (Singulair) 10 mg QHS PO Last administered on 02/20/19 21:05; Admin Dose 10 MG; Start 02/17/19 at 21:00 Acetaminophen (Tylenol Tab) 1,000 mg Q4 PRN PO pain Last administered on 02/18/19 19:28; Admin Dose 1,000 MG; Start 02/17/19 at 13:00 Ondansetron HCl (Zofran Inj) 4 mg Q4 PRN IV nausea; Start 02/17/19 at 13:00 Zolpidem Tartrate (Ambien) 5 mg HS MAY REPEAT X 1 PRN PO INSOMNIA Last administered on 02/20/19 22:52; Admin Dose 5 MG; Start 02/17/19 at 13:00 Diagnostic Test (Pha) (Accu-Chek) 1 ea 02 XX Last administered on 02/21/19 02:19; Admin Dose 1 EA; Start 02/18/19 at 02:00 Insulin Aspart (Novolog Insulin Pen) NOVOLOG *MODERATE* ALGORITHM WITH MEALS BEDTIME SC Last administered on 02/20/19 17:30; Admin Dose 2 UNIT; Start 02/17/19 at 21:00 Miscellaneous Information 1 ea NOTE XX ; Start 02/17/19 at 19:00 Glucose (Glutose) 15 gm Q15M PRN PO DECREASED GLUCOSE; Start 02/17/19 at 19:00 Glucose (Glutose) 22.5 gm Q15M PRN PO DECREASED GLUCOSE; Start 02/17/19 at 19:00 Dextrose (D50w Syringe) 25 ml Q15M PRN IV DECREASED GLUCOSE; Start 02/17/19 at 19:00 Dextrose (D50w Syringe) 50 ml Q15M PRN IV DECREASED GLUCOSE; Start 02/17/19 at 19:00 Glucagon (Glucagen) 1 mg Q15M PRN IM DECREASED GLUCOSE; Start 02/17/19 at 19:00 Glucose (Glutose) 15 gm Q15M PRN BUCCAL DECREASED GLUCOSE; Start 02/17/19 at 19:00 Atorvastatin Calcium (Lipitor) 80 mg QHS PO Last administered on 02/20/19at 21:06; Admin Dose 80 MG; Start 02/18/19 at 21:00 Aspirin (Aspirin) 81 mg DAILY PO Last administered on 02/21/19at 08:46; Admin Dose 81 MG; Start 02/18/19 at 09:00 Metoprolol Succinate (Toprol Xl) 12.5 mg DAILY PO Last administered on 02/21/19 08:47; Admin Dose 12.5 MG; Start 02/18/19 at 09:00 Albuterol/ Ipratropium (Duoneb) 3 ml Q6H RESP THERAPY HHN Last administered on 02/21/19at 07:36; Admin Dose 3 ML; Start 02/18/19 at 02:00 Albuterol/ Ipratropium (Duoneb) 3 ml Q6H RESP THERAPY PRN HHN SHORTNESS OF BREATH; Start 02/17/19 at 22:30 Lisinopril (Zestril) 2.5 mg DAILY PO Last administered on 02/18/19at 13:07; Admin Dose 2.5 MG; Start 02/18/19 at 09:30 Nitroglycerin (Nitroglycerin (Sl Tab) 0.4 Mg) 1 tab Q5M PRN SL ANGINA; Start 02/19/19 at 00:00 Morphine Sulfate (morphine) 3 mg Q1H PRN IV CHEST PAIN Last administered on 02/21/19at 01:16; Admin Dose 3 MG; Start 02/19/19 at 01:30 Insulin Aspart (Novolog Insulin Pen) 15 unit WITH MEALS SC Last administered on 02/21/19 08:21; Admin Dose 15 UNIT; Start 02/19/19 at 11:30 Insulin Glargine (Lantus) 55 units DAILY@2000 SC Last administered on 02/20/19 22:53; Admin Dose 55 UNITS; Start 02/19/19 at 20:00 Diclofenac Sodium (Voltaren 1% Gel) 2 gm QID PRN TP PAIN Last administered on 02/21/19 08:21; Admin Dose 2 GM; Start 02/19/19 at 18:30 Assessment/Plan Hospital Course (Demo Recall) Assessment 1. Multivessel coronary artery disease 2. Improved renal insufficiency 3. Status post acute hypoxemic respiratory failure secondary to congestive cardiac failure Plan 1. Continue to renal recommendations 2. Supplemental O2 bilevel ventilation as tolerated 3. Scheduled for coronary artery bypass graft surgery Tuesday Keep in ICU. Critical care time 40 minutes. OLU NÚÑEZ MD, [facility] February 21, 2019 09:02
--- NOTE | 2019-02-21 09:06 | RADRPT ---
Vent Rate: 99 bpm RR Interval: 0 msec SD Interval: 110 msec QRS Duration: 84 msec QT Interval: 336 msec QTC Interval: 431 msec P-R-T [place]: 45 - 35 - -18 degrees Sinus rhythm with short SD Low voltage QRS ST & T wave abnormality, consider inferior ischemia Abnormal ECG Electronically Signed By: Nahid Jameson
--- NOTE | 2019-02-21 09:08 | RADRPT ---
Vent Rate: 113 bpm RR Interval: 532 msec [place] Interval: 113 msec QRS Duration: 89 msec QT Interval: 326 msec QTC Interval: 447 msec P-R-T [place]: 68 - 52 - -60 degrees Sinus tachycardia. nonspecifict ST abn Electronically Signed By: Nahid Jameson
--- NOTE | 2019-02-21 09:38 | CONS ---
Assessment/Plan Cardiology NYHA: IV Heart Failure Type: Acute Heart Failure Type: Both Assessment/Plan Hospital Course (Demo Recall) 68 yo with NSTEMI and acute heart failure. Cath shows 3 vessel coronary disease Impression: NSTEMI with severe 3 vessel coronary disease Acute diastolic and systolic heart failure, improved with diuresis Diabetes uncontrolled, now with improved control in the hospital Pure hypercholesterolemia Recommendations: CABG recommended. Dr. Subramanian has discussed with patient and family, and plan is for cabg on Tuesday Continue asa, high intensity statin, bb, jourdan. Will uptitrate as able given relatively low blood pressures Consultation Date/Type/Reason Admit Date/Time February 17, 2019 at 13:03 Initial Consult Date 02/18/19 Type of Consult Cardiology Requesting Provider: RUDY LONDON Date/Time of Note DATE: 02/21/19 TIME: 09:33 24 HR Interval Summary Free Text/Dictation No chest pain, no dyspnea Exam/Review of Systems Vital Signs Vitals Vital Signs Date Temp Pulse Resp B/P (MAP) Pulse Ox O2 O2 Flow FiO2 Time Delivery Rate 02/21/19 104 19 96 Nasal 4.0 07:37 Cannula 02/21/19 93/64 (74) 06:00 02/21/19 98.3 04:00 02/20/19 30 21:15 Intake and Output 02/20/19 02/20/19 02/21/19 1515:00 23:00 07:00 IntakeIntake Total 50 ml 582.5 ml 375 ml OutputOutput Total 205 ml 320 ml 208 ml BalanceBalance -155 ml 262.5 ml 167 ml Exam Constitutional: alert, oriented, other (obese) Psych: nl mood/affect Head: normocephalic, atraumatic Eyes: EOMI, nl lids, nl sclera ENMT: nl external ears & nose, nl lips & teeth Neck: supple; No jvd, No bruits Respiratory: clear to auscultation, normal air movement Cardiovascular: regular rate and rhythm, nl pulses (right radial pulse intact, no hematoma, site healed, hand warm); No murmurs/extra sounds Gastrointestinal: soft, nl liver, spleen, non-tender Musculoskeletal: nl extremities to inspection Extremities: normal pulses; No edema Neurological: nl mental status, nl speech Skin: nl turgor; No rash or lesions Labs Result Diagram: 02/21/19 0504 02/21/19 0504 Results 24hrs Laboratory Tests Test 02/20/19 11:01 02/20/19 17:25 02/20/19 20:46 02/21/19 02:17 Bedside Glucose 143 177 142 165 Test 02/21/19 05:04 02/21/19 08:19 White Blood Count 14.2 H Red Blood Count 2.98 L Hemoglobin 9.1 L Hematocrit 28.4 L Mean Corpuscular 95.3 Volume Mean Corpuscular 30.5 Hemoglobin Mean Corpuscular 32.0 Hemoglobin Concent Red Cell 13.1 Distribution Width Platelet Count 256 # Mean Platelet Volume 11.9 H Immature 0.600 H Granulocytes % Neutrophils % 78.6 H Lymphocytes % 13.9 L Monocytes % 6.5 Eosinophils % 0.3 Basophils % 0.1 Nucleated Red Blood 0.0 Cells % Immature 0.090 H Granulocytes # Neutrophils # 11.2 H Lymphocytes # 2.0 Monocytes # 0.9 Eosinophils # 0.0 Basophils # 0.0 Nucleated Red Blood 0.0 Cells # Sodium Level 138 Potassium Level 4.1 Chloride Level 104 Carbon Dioxide Level 28 Anion Gap 6 Blood Urea Nitrogen 42 H Creatinine 1.17 H Est Glomerular 46 L Filtrat Rate mL/min Glucose Level 141 Calcium Level 8.3 L Phosphorus Level 4.5 Magnesium Level 2.7 H Total Bilirubin 0.5 Direct Bilirubin 0.00 Indirect Bilirubin 0.5 Aspartate Amino 41 Transf (AST/SGOT) Alanine 25 Aminotransferase (AL T/SGPT) Alkaline Phosphatase 97 Total Protein 6.3 Albumin 3.2 L Globulin 3.10 Albumin/Globulin 1.03 Ratio Bedside Glucose 127 Medications Medications Current Medications Escitalopram Oxalate (Lexapro) 10 mg DAILY PO Last administered on 02/21/19at 08:46; Admin Dose 10 MG; Start 02/17/19 at 13:00 Montelukast Sodium (Singulair) 10 mg QHS PO Last administered on 02/20/19at 21:05; Admin Dose 10 MG; Start 02/17/19 at 21:00 Acetaminophen (Tylenol Tab) 1,000 mg Q4 PRN PO pain Last administered on 02/18/19at 19:28; Admin Dose 1,000 MG; Start 02/17/19 at 13:00 Ondansetron HCl (Zofran Inj) 4 mg Q4 PRN IV nausea; Start 02/17/19 at 13:00 Zolpidem Tartrate (Ambien) 5 mg HS MAY REPEAT X 1 PRN PO INSOMNIA Last administered on 02/20/19at 22:52; Admin Dose 5 MG; Start 02/17/19 at 13:00 Diagnostic Test (Pha) (Accu-Chek) 1 ea 02 XX Last administered on 02/21/19at 02:19; Admin Dose 1 EA; Start 02/18/19 at 02:00 Insulin Aspart (Novolog Insulin Pen) NOVOLOG *MODERATE* ALGORITHM WITH MEALS BEDTIME SC Last administered on 02/20/19 17:30; Admin Dose 2 UNIT; Start 02/17/19 at 21:00 Miscellaneous Information 1 ea NOTE XX ; Start 02/17/19 at 19:00 Glucose (Glutose) 15 gm Q15M PRN PO DECREASED GLUCOSE; Start 02/17/19 at 19:00 Glucose (Glutose) 22.5 gm Q15M PRN PO DECREASED GLUCOSE; Start 02/17/19 at 19:00 Dextrose (D50w Syringe) 25 ml Q15M PRN IV DECREASED GLUCOSE; Start 02/17/19 at 19:00 Dextrose (D50w Syringe) 50 ml Q15M PRN IV DECREASED GLUCOSE; Start 02/17/19 at 19:00 Glucagon (Glucagen) 1 mg Q15M PRN IM DECREASED GLUCOSE; Start 02/17/19 at 19:00 Glucose (Glutose) 15 gm Q15M PRN BUCCAL DECREASED GLUCOSE; Start 02/17/19 at 19:00 Atorvastatin Calcium (Lipitor) 80 mg QHS PO Last administered on 02/20/19at 21:06; Admin Dose 80 MG; Start 02/18/19 at 21:00 Aspirin (Aspirin) 81 mg DAILY PO Last administered on 02/21/19 08:46; Admin Dose 81 MG; Start 02/18/19 at 09:00 Metoprolol Succinate (Toprol Xl) 12.5 mg DAILY PO Last administered on 02/21/19 08:47; Admin Dose 12.5 MG; Start 02/18/19 at 09:00 Albuterol/ Ipratropium (Duoneb) 3 ml Q6H RESP THERAPY HHN Last administered on 02/21/19at 07:36; Admin Dose 3 ML; Start 02/18/19 at 02:00 Albuterol/ Ipratropium (Duoneb) 3 ml Q6H RESP THERAPY PRN HHN SHORTNESS OF BREATH; Start 02/17/19 at 22:30 Lisinopril (Zestril) 2.5 mg DAILY PO Last administered on 02/18/19at 13:07; Admin Dose 2.5 MG; Start 02/18/19 at 09:30 Nitroglycerin (Nitroglycerin (Sl Tab) 0.4 Mg) 1 tab Q5M PRN SL ANGINA; Start 02/19/19 at 00:00 Morphine Sulfate (morphine) 3 mg Q1H PRN IV CHEST PAIN Last administered on 02/21/19 01:16; Admin Dose 3 MG; Start 02/19/19 at 01:30 Insulin Aspart (Novolog Insulin Pen) 15 unit WITH MEALS SC Last administered on 02/21/19 08:21; Admin Dose 15 UNIT; Start 02/19/19 at 11:30 Insulin Glargine (Lantus) 55 units DAILY@2000 SC Last administered on 02/20/19 22:53; Admin Dose 55 UNITS; Start 02/19/19 at 20:00 Diclofenac Sodium (Voltaren 1% Gel) 2 gm QID PRN TP PAIN Last administered on 02/21/19 08:21; Admin Dose 2 GM; Start 02/19/19 at 18:30 RUDY LONDON February 21, 2019 09:38
--- NOTE | 2019-02-21 10:01 | PN ---
Date/Time of Note Date/Time of Note DATE: 02/21/19 TIME: 09:59 Subjective Doing well. No chest pain or shortness of breath. Daughter at the bedside Objective Vitals Vital Signs Date Temp Pulse Resp B/P (MAP) Pulse Ox O2 O2 Flow FiO2 Time Delivery Rate 02/21/19 109 25 111/68 95 Nasal 4.0 09:00 (82) Cannula 02/21/19 98.0 08:00 02/20/19 30 21:15 Intake and Output 02/20/19 02/20/19 02/21/19 1515:00 23:00 07:00 IntakeIntake Total 50 ml 582.5 ml 375 ml OutputOutput Total 205 ml 320 ml 228 ml BalanceBalance -155 ml 262.5 ml 147 ml Neck supple Lungs clear to auscultation bilaterally Cardiac regular rate and rhythm no murmurs or gallops Abdomen soft nontender nondistended Extremities no edema Neurological nonfocal Results Result Diagram: 02/21/19 0504 02/21/19 0504 Medications Medications Current Medications Escitalopram Oxalate (Lexapro) 10 mg DAILY PO Last administered on 02/21/19at 08:46; Admin Dose 10 MG; Start 02/17/19 at 13:00 Montelukast Sodium (Singulair) 10 mg QHS PO Last administered on 02/20/19at 21:05; Admin Dose 10 MG; Start 02/17/19 at 21:00 Acetaminophen (Tylenol Tab) 1,000 mg Q4 PRN PO pain Last administered on 02/18/19 19:28; Admin Dose 1,000 MG; Start 02/17/19 at 13:00 Ondansetron HCl (Zofran Inj) 4 mg Q4 PRN IV nausea; Start 02/17/19 at 13:00 Zolpidem Tartrate (Ambien) 5 mg HS MAY REPEAT X 1 PRN PO INSOMNIA Last administered on 02/20/19at 22:52; Admin Dose 5 MG; Start 02/17/19 at 13:00 Diagnostic Test (Pha) (Accu-Chek) 1 ea 02 XX Last administered on 02/21/19at 02:19; Admin Dose 1 EA; Start 02/18/19 at 02:00 Insulin Aspart (Novolog Insulin Pen) NOVOLOG *MODERATE* ALGORITHM WITH MEALS BEDTIME SC Last administered on 02/20/19at 17:30; Admin Dose 2 UNIT; Start 02/17/19 at 21:00 Miscellaneous Information 1 ea NOTE XX ; Start 02/17/19 at 19:00 Glucose (Glutose) 15 gm Q15M PRN PO DECREASED GLUCOSE; Start 02/17/19 at 19:00 Glucose (Glutose) 22.5 gm Q15M PRN PO DECREASED GLUCOSE; Start 02/17/19 at 19:00 Dextrose (D50w Syringe) 25 ml Q15M PRN IV DECREASED GLUCOSE; Start 02/17/19 at 19:00 Dextrose (D50w Syringe) 50 ml Q15M PRN IV DECREASED GLUCOSE; Start 02/17/19 at 19:00 Glucagon (Glucagen) 1 mg Q15M PRN IM DECREASED GLUCOSE; Start 02/17/19 at 19:00 Glucose (Glutose) 15 gm Q15M PRN BUCCAL DECREASED GLUCOSE; Start 02/17/19 at 19:00 Atorvastatin Calcium (Lipitor) 80 mg QHS PO Last administered on 02/20/19at 21:06; Admin Dose 80 MG; Start 02/18/19 at 21:00 Aspirin (Aspirin) 81 mg DAILY PO Last administered on 02/21/19at 08:46; Admin Dose 81 MG; Start 02/18/19 at 09:00 Metoprolol Succinate (Toprol Xl) 12.5 mg DAILY PO Last administered on 02/21/19at 08:47; Admin Dose 12.5 MG; Start 02/18/19 at 09:00 Albuterol/ Ipratropium (Duoneb) 3 ml Q6H RESP THERAPY HHN Last administered on 02/21/19at 07:36; Admin Dose 3 ML; Start 02/18/19 at 02:00 Albuterol/ Ipratropium (Duoneb) 3 ml Q6H RESP THERAPY PRN HHN SHORTNESS OF BREATH; Start 02/17/19 at 22:30 Lisinopril (Zestril) 2.5 mg DAILY PO Last administered on 02/18/19at 13:07; Admin Dose 2.5 MG; Start 02/18/19 at 09:30 Nitroglycerin (Nitroglycerin (Sl Tab) 0.4 Mg) 1 tab Q5M PRN SL ANGINA; Start 02/19/19 at 00:00 Morphine Sulfate (morphine) 3 mg Q1H PRN IV CHEST PAIN Last administered on 02/21/19 01:16; Admin Dose 3 MG; Start 02/19/19 at 01:30 Insulin Aspart (Novolog Insulin Pen) 15 unit WITH MEALS SC Last administered on 02/21/19 08:21; Admin Dose 15 UNIT; Start 02/19/19 at 11:30 Insulin Glargine (Lantus) 55 units DAILY@2000 SC Last administered on 02/20/19 22:53; Admin Dose 55 UNITS; Start 02/19/19 at 20:00 Diclofenac Sodium (Voltaren 1% Gel) 2 gm QID PRN TP PAIN Last administered on 02/21/19 08:21; Admin Dose 2 GM; Start 02/19/19 at 18:30 VTE Prophylaxis Risk score (from Nsg)>0 risk: 10 SCD applied (from Nsg): Yes Lines/Catheters IV Catheter Type: Saline Lock Beltran in Place: No Assessment/Plan Assessment/Plan 68-year-old female with acute non-STEMI Multivessel coronary artery disease, requiring CABG Ischemic cardiomyopathy Type 2 diabetes mellitus Chronic asthma, compensated Moderate obesity Transferred to telemetry Proceed with coronary artery bypass graft I left a message for Dr. Zamudio. NILAY NORTON MD February 21, 2019 10:01
[2019-02-21] MEDS: FAMOTIDINE 20 MG TAB PO SCH ×2 (11:30→20:17)
[2019-02-21] MEDS ORDERED: INSULIN GLARGINE [LANTus] (100 UNITS/ML) SYG SC SCH (20:00)
[2019-02-21] MEDS ORDERED: FUROSEMIDE 20 MG INJ IV ONE (20:00)
[2019-02-21] MEDS: MONTELUKAST 10 MG TAB PO SCH (20:17)
[2019-02-21] MEDS: ATORVASTATIN 80 MG TAB PO SCH (20:17)
[2019-02-21] MEDS: ZOLPIDEM 5 MG TAB PO PRN (21:36)
--- NOTE | 2019-02-23 03:05 | DS ---
DATE OF ADMISSION: 02/17/2019 DATE OF DISCHARGE: 02/21/2019 DISCHARGE DIAGNOSES: 1. A 68-year-old female with acute non-ST elevation myocardial infarction. 2. Multivessel coronary artery disease. 3. Ischemic cardiomyopathy. 4. Type 2 diabetes mellitus. 5. Chronic asthma, compensated. 6. Moderate obesity. HOSPITAL COURSE: A 68-year-old female with multiple other medical problems, presented to emergency r o with the complaint of shortness of breath and dyspnea on exertion. The patient was diagnosed wit h acute non-STEMI. A 2D echo showed ischemic cardiomyopathy with EF of 35%. The patient was seen in consultation by Dr. Gagnon. She was taken to the quality assurance/r&d lab technician. The patient wa s found to have multivessel coronary artery disease. Coronary artery bypass graft was recommended. The patient was evaluated by Dr. Subramanian who agreed with CABG. However, her son refused the procedure and insisted on a PCI and stent placement. The angiogram was reviewed by an outside lawn service manager at [facility]. I explained to the son on numerous occasions that CABG is the best option. Even the c ardiologist at [facility] agreed that CABG is indicated. Her son decided to sign the patient out a gainst medical advice. Dr. Gagnon was notified of the discharge. Dictated By: NILAY NORTON MD SK/NTS Conf#: [id number] DID#: [id number] CC: RUDY GAGNON MD;*EndCC*
== END 2019-02-21 23:55 | disposition left against medical advice (07) | DRG 280 ==
LOC: E/R 10:34 → 6WM 13:03 → ICU 16:54
PROVIDERS: ADMIT Internal Medicine; ATTEND Internal Medicine
PROC: 4A033BC Measurement of Arterial Pressure, Coronary, Percutaneous Approach (ICD-10-PCS; 2019-02-20)
PROC: 4A023N7 Measurement of Cardiac Sampling and Pressure, Left Heart, Percutaneous Approach (ICD-10-PCS; principal; 2019-02-20 14:00)
PROC: B2101ZZ Fluoroscopy of Single Coronary Artery using Low Osmolar Contrast (ICD-10-PCS; 2019-02-20 14:00)
DX: I21.4 Non-ST elevation (NSTEMI) myocardial infarction (principal); I50.43 Acute on chronic combined systolic (congestive) and diastolic (congestive) heart failure; I25.5 Ischemic cardiomyopathy; I25.119 Atherosclerotic heart disease of native coronary artery with unspecified angina pectoris; I11.0 Hypertensive heart disease with heart failure; E11.9 Type 2 diabetes mellitus without complications; E66.9 Obesity, unspecified; Z68.32 Body mass index [BMI] 32.0-32.9, adult; J45.909 Unspecified asthma, uncomplicated; D64.9 Anemia, unspecified; Z79.4 Long term (current) use of insulin; Z79.82 Long term (current) use of aspirin; E78.00 Pure hypercholesterolemia, unspecified
CPT/HCPCS: 71045; 73030; 80048; 80053; 80061; 82550; 82553; 82962; 83036; 83735; 83880; 84100; 84484; 85025; 85610; 85730; 87081; 87400; 93005; 93306; 93458; 93571; 93880; 94640; 94644; 94660; 94664; 96372; 96374; 96375; 97163; C1887; J1644; J1650; J1815; J1940; J2250; J2270; J2405; J2930; J3010; J7030; J7040; Q9967